=== PATIENT | female | born 1955 | race Two or more races ===

== ENCOUNTER 2018-12-04 03:19 | Inpatient (IN) | payer OTHER, MEDICAID ==
[~2018-12-04] VITALS: Ht 152.4 cm; Wt 50.4 kg
[~2018-12-04 03:19] MED LIST: APIX2.5T PO; INSULIN; METF850T; [UNRECOGNIZED DRUG - OTHER]; [UNRECOGNIZED DRUG - OTHER]
[2018-12-04 04:13] LABS: Basophils # (auto) 0 uL; Basophils % (auto) 0.4 % (0.0-2.0); Eosinophils # (auto) 0.1 uL; Hemoglobin 11.1 g/dL (12.2-16.2); Lymphocytes # (auto) 1.7 uL; Mean Corpuscular Hemoglobin 31.1 pg (28.0-32.0); Mean Corpuscular Hgb Conc. 33.6 g/dL (32.0-36.0); Mean Corpuscular Volume 92.6 fL (80.0-100.0); Monocytes # (auto) 0.8 uL; Monocytes % (auto) 7.6 % (0.0-12.0); Neutrophils # (auto) 7.4 uL; Platelet Count (auto) 284 10^3/uL (140-450); Red Blood Cells 3.57 10^6/uL (4.0-5.20); Red Cell Distribution Width 13.4 % (11.8-14.3)
[2018-12-04 04:28] LABS: Alanine Aminotransferase 23 U/L (13-56); Albumin 3.7 g/dL (3.4-5.0); Anion Gap 8 (5-15); Calcium 8.2 mg/dL (8.5-10.1); Carbon Dioxide 22 mmol/L (21-32); Chloride 112 mmol/L (98-107); Glucose 114 mg/dL (74-106); Potassium 3.8 mmol/L (3.5-5.1); Sodium 142 mmol/L (136-145)
[2018-12-04 04:32] LABS: Alkaline Phosphatase 110 U/L (45-117); Aspartate Aminotransferase 17 U/L (15-37); BUN/Creatinine Ratio 31.4; Bilirubin, Total 0.2 mg/dL (0.2-1.0); GFR African American 24 mL/min; GFR Non-African American 20 mL/min; Total Protein 7.9 g/dL (6.4-8.2)
[2018-12-04 04:36] LABS: Blood Urea Nitrogen 82 mg/dL (7-18); INR 1.02 (0.9-1.15); Partial Thromboplastin Time 32.2 sec (23.64-32.05)
[2018-12-04] MEDS ORDERED: FUROSEMIDE 20 MG/2 ML VIAL IV ONE (08:00)
[2018-12-04] MEDS ORDERED: MORPHINE SULF INJ 2 MG/ML SYRINGE 1ML IV PRN (09:45)
[2018-12-04] MEDS ORDERED: NITROGLYCERIN 0.4 MG SL TAB SL PRN (09:45)
[2018-12-04] MEDS ORDERED: PROMETHAZINE HCL 25 MG/ML 1ML IV PRN (09:45)
[2018-12-04] MEDS ORDERED: LACTULOSE 20Gm/30ML SOLN PO PRN (09:45)
[2018-12-04] MEDS ORDERED: TEMAZEPAM 15 MG CAP PO PRN (09:45)
[2018-12-04] MEDS ORDERED: ACETAMINOPHEN 500 MG TAB PO PRN (09:45)
[2018-12-04] MEDS ORDERED: traMADol HCL 50 MG TAB PO PRN (09:45)
[2018-12-04] MEDS ORDERED: DEXTROSE (50%) 50ML SYRG IV PRN (09:45)
[2018-12-04 09:57] LABS: Urine Bacteria FEW /hpf (None Seen); Urine Blood 1+ /uL (Negative); Urine Specific Gravity 1.006 (1.001-1.035); Urine WBC 3 /hpf (0 - 5)
[2018-12-04] MEDS: PANTOPRAZOLE 40 MG TAB PO SCH (10:32)
[2018-12-04] MEDS: APIXABAN 2.5 MG TAB PO SCH ×2 (10:33→22:32)
[2018-12-04] MEDS: FUROSEMIDE 40 MG/4 ML VIAL IV SCH (10:33)
[2018-12-04] MEDS: HYDROcodone-ACET 10/325MG TAB PO PRN ×2 (11:15→22:33)
[2018-12-04] MEDS: ACCU-CHEK COMFORT CURVE STRIP VI SCH ×3 (11:19→22:33)
[2018-12-04] MEDS: InsuLIN REG 1unit/0.01ml Soln (100units/ml) SC SCH ×3 (11:20→22:00)
[2018-12-04] MEDS: SODIUM CHLOR 0.9% PF (SALINE LOCK) 10ML VIAL/SYR IV SCH ×2 (14:02→22:32)
[2018-12-04 20:40] VITALS: BP 138/58
[2018-12-04 20:45] VITALS: BP 138/58
--- NOTE | 2018-12-04 20:45 | NUR ---
Telemetry admit from ER COMPA GALLARDO admitted to Telemetry unit after SBAR received. Patient oriented to Pham Bowen, primary RN, unit, room, bed, and unit policies regarding patient care and visiting hours. Patient now on continuous telemetry monitoring, tele box #5 and telemetry reading on arrival to unit is . Patient placed on bedside oxygen, weighed by bedscale and encouraged to call if they need something. All questions and concerns addressed, patient verbalized understanding. Family at bedside. Good family dynamics noted.
--- NOTE | 2018-12-04 22:35 | NUR ---
PATIENT REFUSED INSULIN BS 159. PATIENT STATED THAT HER BLOOD SUGAR NORMALLY DROPS OVER NIGHT AND THAT SHE WILL NOT BE EATING ANYTHING UNTIL BREAKFAST.
[2018-12-05] MEDS ORDERED: GLIP-116 PO (01:03)
[2018-12-05] MEDS ORDERED: AMLO5TAB13 PO (01:03)
[2018-12-05] MEDS ORDERED: FURO40TA4 PO (01:03)
[2018-12-05] MEDS ORDERED: NIFE30TA76 PO (01:03)
[2018-12-05] MEDS ORDERED: APIX5TAB OR (01:03)
[2018-12-05] MEDS ORDERED: ERGO2000 PO (01:03)
[2018-12-05] MEDS ORDERED: PROM25TA5 PO (01:03)
--- NOTE | 2018-12-05 04:39 | NUR ---
WOUND PHOTOS WOUND PHOTOS TO LEFT AND RIGHT KNEES TAKEN. WOUND CARE FORM SIGNED AND PLACED IN WOUND CARE FILE.
[2018-12-05 05:00] VITALS: BP 114/67
[2018-12-05] MEDS: SODIUM CHLOR 0.9% PF (SALINE LOCK) 10ML VIAL/SYR IV SCH ×3 (05:49→22:01)
[2018-12-05] MEDS: InsuLIN REG 1unit/0.01ml Soln (100units/ml) SC SCH ×4 (06:08→22:00)
[2018-12-05] MEDS: ACCU-CHEK COMFORT CURVE STRIP VI SCH ×4 (06:09→22:01)
[2018-12-05 07:19] LABS: Basophils # (auto) 0 uL; Basophils % (auto) 0.5 % (0.0-2.0); Eosinophils # (auto) 0.1 uL; Eosinophils % (auto) 1.7 % (0.0-7.0); Hematocrit 32.4 % (36.0-46.0); Hemoglobin 10.8 g/dL (12.2-16.2); Lymphocytes # (auto) 1.9 uL; Lymphocytes % (auto) 24.4 % (10.0-50.0); Mean Corpuscular Hgb Conc. 33.4 g/dL (32.0-36.0); Mean Corpuscular Volume 92.9 fL (80.0-100.0); Monocytes # (auto) 0.7 uL; Monocytes % (auto) 8.6 % (0.0-12.0); Neutrophils # (auto) 4.9 uL; Neutrophils % (auto) 64.8 % (37.0-80.0); Platelet Count (auto) 295 10^3/uL (140-450); Red Blood Cells 3.49 10^6/uL (4.0-5.20); Red Cell Distribution Width 13.6 % (11.8-14.3); White Blood Cell 7.6 10^3/uL (4.4-10.8)
[2018-12-05 07:33] LABS: Albumin 3.5 g/dL (3.4-5.0); Calcium 7.9 mg/dL (8.5-10.1); Potassium 3.8 mmol/L (3.5-5.1)
[2018-12-05 07:35] LABS: BUN/Creatinine Ratio 22.3
[2018-12-05 07:38] LABS: Bilirubin, Total 0.2 mg/dL (0.2-1.0); Total Protein 7.2 g/dL (6.4-8.2)
--- NOTE | 2018-12-05 08:11 | NUR ---
ENDORSED PATIENT CARE TO DAY SHIFT NURSE BIPIN GRAHAM.
--- NOTE | 2018-12-05 08:30 | NUR ---
Opening Shift Note Assumed care of patient, awake and alert. No S/S of distress/SOB or pain. Instructed on POC and to call for assist PRN, will continue to monitor for changes Q1hr and PRN.
[2018-12-05] MEDS: HYDROcodone-ACET 10/325MG TAB PO PRN ×2 (08:47→16:27)
[2018-12-05 09:00] VITALS: BP 129/65
[2018-12-05] MEDS: PANTOPRAZOLE 40 MG TAB PO SCH (09:44)
[2018-12-05] MEDS: APIXABAN 2.5 MG TAB PO SCH ×2 (09:44→22:01)
[2018-12-05] MEDS: FUROSEMIDE 40 MG/4 ML VIAL IV SCH (09:45)
--- NOTE | 2018-12-05 10:30 | NUR ---
WOUND CARE NOTE: IN TO SEE PATIENT PER WOUND CARE CONSULT REQUEST. PATIENT WAS NOTED UPON ADMIT TO HAVE WOUND TO LEFT KNEE. WOUND PHOTO TAKEN AT THAT TIME BY BEDSIDE NURSE, WOUND CONSULT ORDERED. PATIENT ADMITTED WITH DIAGNOSIS OF NEPHROLITHIASIS. CURRENT HILDA SCORE IS 20. PATIENT IS AMBULATORY, CAN SELF TURN/REPOSITION HERSELF. PATIENT NOTED TO HAVE AN INTACT SERUM BLISTER TO THE LEFT KNEE. NO OPEN OR DRAINING AREAS NOTED. SKIN IS DARK RED. PATIENT STATES THAT SHE PERIODICALLY OBTAINS BLISTERS TO VARIOUS AREAS OF THE SKIN. SHE HAS NO OTHER BLISTERS NOTED AT THIS TIME, OTHER THAN THE LEFT KNEE. LEFT OPEN TO AIR. PLACED SKIN/WOUND CARE PLAN FOR WOUND. NO FURTHER WOUND CARE MONITORING NEEDED AT THIS TIME. Addendum: 12/05/18 at 1657 by Lilliam Dunham RN Amended: Links added.
--- NOTE | 2018-12-05 11:30 | NUR ---
PT AMBULATES FREQUENTLY IN THE HALLWAY GAIT STEADY. TOLERATE ACTIVITY WELL.
[2018-12-05 13:11] VITALS: BP 123/45
--- NOTE | 2018-12-05 16:00 | NUR ---
PT REPORTS THAT SHE IS DOING FINE AND DOES NOT NEED P.T.
--- NOTE | 2018-12-05 19:10 | NUR ---
ASSUMED PATIENT CARE- NOC SHIFT PATIENT IS ALERT AND ORIENTED X4. PATIENT IS IN BED, BED IS LOCKED IN LOWEST POSITION, BED RAILS UP X2 AND HEAD OF BED IS UP >30 FOR SAFETY PRECAUTIONS. BEDSIDE TABLE WITHIN REACH, PERSONAL BELONGINGS WITHIN REACH, CALL LIGHT WITHIN REACH. DISCUSSED POC WITH PATIENT AND INSTRUCTED PATIENT TO CALL PRN; PATIENT VERBALIZED UNDERSTANDING. WILL CONTINUE TO MONITOR Q1H AND PRN. NO S/SX OF DISTRESS OR SOB. FAMILY AT BEDSIDE; GOOD FAMILY DYNAMICS NOTED. PATIENT IS CZECH SPEAKING.
--- NOTE | 2018-12-05 19:39 | NUR ---
CLOSING NOTES REPORT GIVEN TO GLADYS MEADOWS. PT RESTING IN BED. FAMILY AT BEDSIDE. DENIES PAIN OR SOB. NO DISTRESS NOTED.
--- NOTE | 2018-12-05 20:48 | NUR ---
PATIENT AND GUILLAUME GALLARDO AT BEDSIDE STATED THAT THEY WANTS FURTHER STUDIES TO BE DONE DURING THIS STAY FOR HIS FOR THE 3 MM NODULE FOUND IN RIGHT LUNG. WILL ENDORSE REQUEST TO DAY SHIFT NURSE.
--- NOTE | 2018-12-05 22:01 | NUR ---
BS 135 PATIENT REFUSED INSULIN. PATIENT STATES THAT HER BLOOD SUGAR DROPS DURING THE NIGHT AND DOES NOT TAKE INSULIN FOR A BLOOD SUGAR OF 135.
[2018-12-05 22:06] VITALS: BP 115/60
[2018-12-06] MEDS: HYDROcodone-ACET 10/325MG TAB PO PRN ×2 (00:47→09:08)
[2018-12-06 05:16] VITALS: BP 124/68
[2018-12-06] MEDS: SODIUM CHLOR 0.9% PF (SALINE LOCK) 10ML VIAL/SYR IV SCH (06:45)
[2018-12-06] MEDS: ACCU-CHEK COMFORT CURVE STRIP VI SCH ×2 (06:45→11:30)
[2018-12-06] MEDS: InsuLIN REG 1unit/0.01ml Soln (100units/ml) SC SCH ×2 (06:45→11:30)
[2018-12-06 07:27] LABS: Basophils # (auto) 0 uL; Basophils % (auto) 0.5 % (0.0-2.0); Eosinophils # (auto) 0.1 uL; Eosinophils % (auto) 1.6 % (0.0-7.0); Hematocrit 32.4 % (36.0-46.0); Hemoglobin 10.8 g/dL (12.2-16.2); Lymphocytes # (auto) 1.7 uL; Lymphocytes % (auto) 23.4 % (10.0-50.0); Mean Corpuscular Hemoglobin 30.8 pg (28.0-32.0); Mean Corpuscular Hgb Conc. 33.2 g/dL (32.0-36.0); Mean Corpuscular Volume 92.8 fL (80.0-100.0); Monocytes # (auto) 0.6 uL; Monocytes % (auto) 8.7 % (0.0-12.0); Neutrophils # (auto) 4.8 uL; Neutrophils % (auto) 65.8 % (37.0-80.0); Platelet Count (auto) 285 10^3/uL (140-450); Red Cell Distribution Width 13.4 % (11.8-14.3); White Blood Cell 7.3 10^3/uL (4.4-10.8)
[2018-12-06 07:40] LABS: Calcium 8.4 mg/dL (8.5-10.1); Magnesium 3.4 mg/dL (1.6-2.6)
--- NOTE | 2018-12-06 07:46 | NUR ---
ENDORSED PATIENT CARE TO DAY SHIFT NURSE. PATIENT IS ALERT AND ORIENTED X4. NO S/SX OF DISTRESS, SOB OR PAIN.
[2018-12-06 07:47] LABS: Cholesterol 218 mg/dL (< 200); HDL Cholesterol 61 mg/dL (40-59); LDL Cholesterol 132 mg/dL (< 100); Triglycerides 180 mg/dL (< 150)
[2018-12-06 08:00] VITALS: BP 129/65
--- NOTE | 2018-12-06 08:00 | NUR ---
ASSESSMENT NOTE PATIENT IS ALERT ORIENTED X4, SITTING ON A CHAIR AT BED SIDE, NO DISTRESS NOTED, DENIES PAIN AT THIS TIME, AMBULATE NEEDED, CALL LIGHT WITHIN REACH.
[2018-12-06 09:00] VITALS: BP 118/69
--- NOTE | 2018-12-06 09:00 | NUR ---
DR PEREA AT BED SIDE FOLLOWING UP ON PT, INFORM PT THAT WE STILL WAITING FOR THE URINE CULTURE.
[2018-12-06] MEDS: FUROSEMIDE 40 MG/4 ML VIAL IV SCH (09:07)
[2018-12-06] MEDS: APIXABAN 2.5 MG TAB PO SCH (09:08)
[2018-12-06] MEDS: PANTOPRAZOLE 40 MG TAB PO SCH (10:00)
--- NOTE | 2018-12-06 10:00 | NUR ---
FAMILY PATIENT'S FAMILY AT BED SIDE
[2018-12-06] MEDS ORDERED: ATOR20TA PO (11:06)
[2018-12-06 11:27] VITALS: BP 118/69
--- NOTE | 2018-12-06 12:19 | NUR ---
Discharge instructions given as ordered. Encourage to follow up with PMD as instructed. All questions and concerns addressed. Patient verbalized understanding. Medication reconciliation form completed and copy given to patient. IV removed with catheter intact, pressure dressing applied, Telemetry unit returned to ICU. Patient ambulated with all personal belongings, accompanied by staff and family member. No distress noted at time of departure.
== END 2018-12-06 12:15 | disposition home or self-care (01) | DRG 291 ==
LOC: EDBD 03:19 → ER 03:27 → TELE 03:28 → TELE-EAST 20:44
PROVIDERS: ADMIT Internal Medicine; ATTEND Internal Medicine
DX: I13.2 Hypertensive heart and chronic kidney disease with heart failure and with stage 5 chronic kidney disease, or end stage renal disease (principal); N18.6 End stage renal disease; I50.43 Acute on chronic combined systolic (congestive) and diastolic (congestive) heart failure; N39.0 Urinary tract infection, site not specified; N20.0 Calculus of kidney; R91.1 Solitary pulmonary nodule; E78.5 Hyperlipidemia, unspecified; F17.210 Nicotine dependence, cigarettes, uncomplicated; K44.9 Diaphragmatic hernia without obstruction or gangrene; E11.22 Type 2 diabetes mellitus with diabetic chronic kidney disease; D63.8 Anemia in other chronic diseases classified elsewhere; K59.00 Constipation, unspecified; Z80.0 Family history of malignant neoplasm of digestive organs; Z82.49 Family history of ischemic heart disease and other diseases of the circulatory system; Z83.3 Family history of diabetes mellitus; Z87.442 Personal history of urinary calculi; Z90.710 Acquired absence of both cervix and uterus; Z99.2 Dependence on renal dialysis; Z88.8 Allergy status to other drugs, medicaments and biological substances; Z79.899 Other long term (current) drug therapy; Z71.6 Tobacco abuse counseling
CPT/HCPCS: 36415; 71045; 74176; 80048; 80053; 80061; 81001; 82550; 82962; 83036; 83735; 83880; 84484; 85025; 85379; 85610; 85652; 85730; 87086; 93005; 93306; 93971; G0378; J1815

== ENCOUNTER 2019-02-15 10:52 | Inpatient (IN) | payer OTHER, MEDICAID ==
[~2019-02-15] VITALS: Ht 152.4 cm; Wt 55.0 kg
[~2019-02-15 10:52] MED LIST changes: +AMLO5TAB15 PO; +APIX5TAB OR; +ATOR20TA PO; +ERGO2000 PO; +FURO40TA4 PO; +GLIP10TA9 PO; +NIFE30TA76 PO; +PROM25TA5 PO
[2019-02-15] MEDS ORDERED: SODIUM CHLORIDE 0.9% 1,000 ML IVB ONE (11:01)
[2019-02-15 11:34] LABS: Basophils # (auto) 0.1 uL; Basophils % (auto) 0.9 % (0.0-2.0); Eosinophils # (auto) 0.1 uL; Eosinophils % (auto) 1.2 % (0.0-7.0); Hemoglobin 12.7 g/dL (12.2-16.2); Lymphocytes # (auto) 2.7 uL; Lymphocytes % (auto) 25.2 % (10.0-50.0); Mean Corpuscular Hemoglobin 31.1 pg (28.0-32.0); Mean Corpuscular Hgb Conc. 33.4 g/dL (32.0-36.0); Monocytes # (auto) 0.6 uL; Monocytes % (auto) 5.6 % (0.0-12.0); Neutrophils # (auto) 7.2 uL; Neutrophils % (auto) 67.1 % (37.0-80.0); Nucleated Red Blood Cells % 0.1 %; Platelet Count (auto) 327 10^3/uL (140-450); Red Blood Cells 4.08 10^6/uL (4.0-5.20); Red Cell Distribution Width 13.4 % (11.8-14.3); White Blood Cell 10.8 10^3/uL (4.4-10.8)
[2019-02-15 11:45] LABS: Albumin 3.9 g/dL (3.4-5.0); Anion Gap 7 (5-15); Calcium 8.6 mg/dL (8.5-10.1); Carbon Dioxide 25 mmol/L (21-32); Chloride 109 mmol/L (98-107); Glucose 154 mg/dL (74-106); Magnesium 2.4 mg/dL (1.6-2.6); Potassium 3.3 mmol/L (3.5-5.1); Sodium 141 mmol/L (136-145)
[2019-02-15 11:51] LABS: Alanine Aminotransferase 23 U/L (13-56); Alkaline Phosphatase 109 U/L (45-117); Aspartate Aminotransferase 18 U/L (15-37); BUN/Creatinine Ratio 14.7; Bilirubin, Total 0.3 mg/dL (0.2-1.0); Blood Urea Nitrogen 39 mg/dL (7-18); GFR African American 23 mL/min; GFR Non-African American 19 mL/min
[2019-02-15] MEDS ORDERED: ONDANSETRON HCL 4 MG/2 ML VIAL IV ONE ×2 (13:30→15:00)
[2019-02-15] MEDS ORDERED: LABETALOL HCL 5 MG/ML ML 20ML VIAL IV PRN (14:30)
[2019-02-15] MEDS ORDERED: LACTULOSE 20Gm/30ML SOLN PO PRN (14:30)
[2019-02-15] MEDS ORDERED: NITROGLYCERIN 0.4 MG SL TAB SL PRN (14:30)
[2019-02-15] MEDS ORDERED: SODIUM CHLORIDE 0.9% 1,000 ML IV SCH (14:30)
[2019-02-15] MEDS ORDERED: MORPHINE SULF INJ 2 MG/ML SYRINGE 1ML IV PRN (14:30)
[2019-02-15] MEDS ORDERED: DEXTROSE (50%) 50ML SYRG IV PRN (14:30)
[2019-02-15 14:55] LABS: Amylase 71 U/L (25-115); Lipase 178 U/L (73-393)
[2019-02-15 14:58] LABS: Creatine Kinase IFCC 55 U/L (26-192)
[2019-02-15] MEDS ORDERED: ONDANSETRON HCL 4 MG/2 ML VIAL ONE (14:59)
[2019-02-15] MEDS ORDERED: LEVOFLOXACIN 500MG 100 ML IV ONE (15:15)
--- NOTE | 2019-02-15 15:45 | NUR ---
Telemetry admit from ER ROSALIA GALLARDO admitted to Telemetry unit after SBAR received. Patient oriented to primary RN, unit, room, bed, and unit policies regarding patient care and visiting hours. Patient now on continuous telemetry monitoring, tele box # 64 and telemetry reading on arrival to unit is SR 91. Patient weighed by bedscale and encouraged to call if she need something. All questions and concerns addressed, patient verbalized understanding. Family members at bedside.
[2019-02-15] MEDS: SODIUM CHLORIDE 0.9% 1,000 ML IV SCH (15:54)
[2019-02-15] MEDS: PROMETHAZINE HCL 25 MG/ML 1ML IV PRN (16:06)
[2019-02-15 16:29] VITALS: BP 141/79
[2019-02-15 17:00] VITALS: BP 141/78
[2019-02-15] MEDS: InsuLIN REG 1unit/0.01ml Soln (100units/ml) SC SCH ×2 (17:39→22:00)
[2019-02-15] MEDS: ACCU-CHEK COMFORT CURVE STRIP VI SCH ×2 (17:40→22:07)
--- NOTE | 2019-02-15 19:30 | NUR ---
RECEIVED PATIENT FROM DAY SHIFT RN. PATIENT RESTING IN BED. NO S/S OF DISTRESS NOTED. DENIED PAIN FOR NOW. POC INSTRUCTED AND ENCOURAGED PATIENT TO CALL FOR TEACHER DANCING IF NEEDED. BED IN LOWEST POSITION WITH SIDE RAILS UP X 2. CALL KWAN WITHIN REACH. ALARM ON. CONTINUE TO MONITOR FOR CHANGES Q1H AND PRN.
[2019-02-15 21:00] VITALS: BP 148/69
[2019-02-15] MEDS ORDERED: ATORVASTATIN 20 MG TAB PO SCH (22:00)
[2019-02-15] MEDS: metroNIDAZOLE 500MG/100ML 100 ML IV SCH (22:07)
[2019-02-15] MEDS: APIXABAN 5 MG TAB PO SCH (22:07)
[2019-02-15] MEDS: traMADol HCL 50 MG TAB PO PRN (22:07)
--- NOTE | 2019-02-15 22:10 | NUR ---
PATIENT C/O PAIN @ 03/01. MEDICATED PATIENT ORDERED. ACCU-CHECK, BS 127. NO COVERAGE. CONTINUE TO MONITOR.
--- NOTE | 2019-02-16 01:45 | NUR ---
ASSISTED PATIENT TO BATHROOM AND BACK TO BED. PATIENT WALKED WELL WITH STEADY GAIT. NO S/S OF DISTRESS NOTED. URINE SAMPLE COLLECTED AND SENT TO LAB. CONTINUE TO MONITOR.
[2019-02-16] MEDS: SODIUM CHLORIDE 0.9% 1,000 ML IV SCH ×2 (01:47→11:21)
[2019-02-16] MEDS: TEMAZEPAM 15 MG CAP PO PRN ×2 (01:50→22:09)
[2019-02-16 02:56] LABS: Urine WBC None Seen /hpf (0 - 5)
[2019-02-16 03:10] LABS: Urine Bacteria NONE SEEN /hpf (None Seen); Urine Blood Negative /uL (Negative); Urine Specific Gravity 1.007 (1.001-1.035)
[2019-02-16 03:26] LABS: Alcohol, Urine < 3.0 mg/dL (0-5); Amphetamine Screen, Urine NEGATIVE (NEGATIVE); Barbiturate Scree,Urine NEGATIVE (NEGATIVE); Benzodiazephine Screen, Urine NEGATIVE (NEGATIVE); Cannabinoid Screen, Urine NEGATIVE (NEGATIVE); Cocaine Screen, Urine NEGATIVE (NEGATIVE); Opiate Scree,Urine NEGATIVE (NEGATIVE); Phencyclidine Screen, Urine NEGATIVE (NEGATIVE)
--- NOTE | 2019-02-16 03:46 | NUR ---
PATIENT SLEEPING. NO S/S OF DISTRESS NOTED. CONTINUE CARE.
[2019-02-16 04:30] VITALS: BP 177/76
[2019-02-16] MEDS: metroNIDAZOLE 500MG/100ML 100 ML IV SCH ×3 (05:45→22:09)
[2019-02-16] MEDS: ACETAMINOPHEN 500 MG TAB PO PRN (05:46)
--- NOTE | 2019-02-16 05:46 | NUR ---
MEDICATED PATIENT FOR PAIN. CONTINUE TO MONITOR.
[2019-02-16 06:00] VITALS: BP 158/71
--- NOTE | 2019-02-16 06:00 | NUR ---
REASSESSED BP 158/71, HR 66. CONTINUE TO MONITOR.
[2019-02-16] MEDS: ACCU-CHEK COMFORT CURVE STRIP VI SCH ×4 (06:40→22:10)
[2019-02-16] MEDS: InsuLIN REG 1unit/0.01ml Soln (100units/ml) SC SCH ×4 (06:40→22:30)
--- NOTE | 2019-02-16 06:41 | NUR ---
ACCU-CHECK, BS 122. NO COVERAGE. CONTINUE TO MONITOR.
--- NOTE | 2019-02-16 07:30 | NUR ---
Opening Shift Note Assumed care of patient, awake and alert sitting up in bed stating that she feels much better today. No S/S of distress/SOB or pain. Instructed on POC and to call for assist PRN, will continue to monitor for changes Q1hr and PRN.
[2019-02-16 09:00] VITALS: BP 151/72
[2019-02-16 09:14] LABS: BUN/Creatinine Ratio 15.3; Calcium 8.1 mg/dL (8.5-10.1); Potassium 3.2 mmol/L (3.5-5.1)
--- NOTE | 2019-02-16 09:30 | NUR ---
Family members at bedside.
[2019-02-16] MEDS: LEVOFLOXACIN 250MG 50 ML IV SCH (09:49)
[2019-02-16] MEDS: APIXABAN 5 MG TAB PO SCH ×2 (09:50→22:09)
[2019-02-16] MEDS: PANTOPRAZOLE 40 MG TAB PO SCH (09:50)
[2019-02-16] MEDS: ATORVASTATIN 20 MG TAB PO SCH (09:50)
[2019-02-16] MEDS: ASPirin 81 mg TAB PO SCH (09:50)
[2019-02-16] MEDS: amLODIPine BESYLATE 5 MG TAB PO SCH (09:55)
[2019-02-16] MEDS ORDERED: ASPirin 81 mg TAB PO SCH (10:00)
[2019-02-16] MEDS ORDERED: ENOXAPARIN SOD 30 MG/0.3 ML SYRINGE SC SCH (10:00)
[2019-02-16] MEDS: traMADol HCL 50 MG TAB PO PRN (12:39)
[2019-02-16 13:00] VITALS: BP 156/79
--- NOTE | 2019-02-16 13:00 | NUR ---
Hospitalist Rounding MD rounded on patient. Family members at bedside, all questions answered.
[2019-02-16] MEDS ORDERED: POTASSIUM CHL 20 Meq TABLET PO ONE (14:15)
--- NOTE | 2019-02-16 15:10 | NUR ---
Repairer [employer] Rounding Dr. Corey at bedside with patient and spouse.
[2019-02-16 16:56] VITALS: BP 153/77
--- NOTE | 2019-02-16 19:30 | NUR ---
RECEIVED PATIENT FROM DAY SHIFT RN. PATIENT RESTING IN BED AND TALKING ON THE PHONE. NO S/S OF DISTRESS NOTED. DENIED PAIN FOR NOW. POC INSTRUCTED AND ENCOURAGED PATIENT TO CALL FOR BUSINESS ASSISTANT IF NEEDED. BED IN LOWEST POSITION WITH SIDE RAILS UP X 2. CALL KWAN WITHIN REACH. ALARM ON. CONTINUE TO MONITOR FOR CHANGES Q1H AND PRN.
--- NOTE | 2019-02-16 21:15 | NUR ---
ASSISTED PATIENT TO BATHROOM AND BACK TO BED. NO S/S OF DISTRESS NOTED GAIT STEADY. CONTINUE TO MONITOR.
[2019-02-16 22:00] VITALS: BP 151/70
--- NOTE | 2019-02-16 22:30 | NUR ---
ACCU-CHECK, BS 164. INSULIN GIVEN ORDERED. CONTINUE TO MONITOR.
[2019-02-17] VITALS (8 sets, daily range): BP systolic 131–183; BP diastolic 59–79
--- NOTE | 2019-02-17 04:41 | NUR ---
PATIENT REFUSED BLOOD DRAW SINCE THE PHLEBOTOMY DID NOT GET THE BLOOD AT THE FIRST TIME. SOMEONE WILL COME BACK TO TRY IT LATER. CONTINUE TO MONITOR.
[2019-02-17] MEDS: InsuLIN REG 1unit/0.01ml Soln (100units/ml) SC SCH ×4 (06:40→21:54)
[2019-02-17] MEDS: ACCU-CHEK COMFORT CURVE STRIP VI SCH ×4 (06:40→21:46)
[2019-02-17] MEDS: metroNIDAZOLE 500MG/100ML 100 ML IV SCH ×3 (06:40→21:04)
--- NOTE | 2019-02-17 06:40 | NUR ---
ACCU-CHECK, BS 132. INSULIN GIVEN ORDERED. CONTINUE TO MONITOR.
--- NOTE | 2019-02-17 07:30 | NUR ---
Opening Shift Note Assumed care of patient, awake and alert x4. Patient denies pain at this time. No S/S of distress/shortness of breath noted at this time. Instructed on plan of care and to call for assistance as needed. Bed is locked in lowest position, side rails x 2 are up, call light is within reach.
[2019-02-17] MEDS: PROMETHAZINE HCL 25 MG/ML 1ML IV PRN (08:32)
[2019-02-17] MEDS: LEVOFLOXACIN 250MG 50 ML IV SCH (10:35)
[2019-02-17] MEDS: APIXABAN 5 MG TAB PO SCH ×2 (10:39→21:53)
[2019-02-17] MEDS: amLODIPine BESYLATE 5 MG TAB PO SCH (10:39)
[2019-02-17] MEDS: ATORVASTATIN 20 MG TAB PO SCH (10:39)
[2019-02-17] MEDS: PANTOPRAZOLE 40 MG TAB PO SCH (10:39)
[2019-02-17] MEDS: ASPirin 81 mg TAB PO SCH (10:39)
[2019-02-17] MEDS ORDERED: AZITHROMYCIN 250 MG TAB PO ONE ×3 (11:30→18:00)
--- NOTE | 2019-02-17 12:00 | NUR ---
AZITHROMYCIN SCHEDULED FOR 11:30 NOT IN MEDICATION PIXUS, CALLED PHARMACY PER PHARMACY WILL SEND UP MEDICATION.
--- NOTE | 2019-02-17 13:20 | NUR ---
Blood pressure was 183/79 reassessed blood pressure 157/79.
--- NOTE | 2019-02-17 13:30 | NUR ---
PATIENT REFUSED IV ACCESS AFTER X4 ATTEMPTS OF INSERTION.
[2019-02-17 13:46] LABS: Albumin 3.7 g/dL (3.4-5.0); Potassium 5.4 mmol/L (3.5-5.1)
[2019-02-17 13:51] LABS: BUN/Creatinine Ratio 17.5; Bilirubin, Total 0.4 mg/dL (0.2-1.0); Calcium 8.7 mg/dL (8.5-10.1); Total Protein 8.3 g/dL (6.4-8.2)
--- NOTE | 2019-02-17 15:33 | NUR ---
PAGE DOCTOR CATHY. AWAITING CALL BACK.
--- NOTE | 2019-02-17 15:35 | NUR ---
SPOKE WITH DOCTOR MORGAN, NEW ORDERS RECEIVED SEE EMR FOR ORDERS.
--- NOTE | 2019-02-17 16:50 | NUR ---
SPOKE WITH DIRECTOR OF STUDENT AFFAIRS SEA, REGARDING MIDLINE UNABLE TO GET MIDLINE TILL TOMORROW.
--- NOTE | 2019-02-17 19:00 | NUR ---
CARE ENDORSED TO CRUMB PACKER.
--- NOTE | 2019-02-17 20:00 | NUR ---
ORDERS RECEIVED FROM Fabiana PRECIADO REGARDING PT'S POTASSIUM LEVEL OF 5.4. DR RAPHAEL ALSO PAGED. THROUGH EMILY [employer] OFFICER EXPLAINED TO PT THE NEED FOR HER LOKELMA PO AND HER ALBUTEROL TREATMENT. PT AWAKE ALERT ORIENTED X 4 AND IS COMPLIANT WITH PO MEDS BUT IS ADAMANTLY REFUSING TO ALLOW AN IV TO BE RESTARTED. EMILY STATES PT KNOWS THAT LEGALLY WE CANNOT FORCE AN IV ON HER. EXPLAINED THE NEED FOR CALCIUM GLUCONATE TO BE ADMINISTERED THROUGH AN IV TO HELP BRING HER POTASSIUM DOWN. PT STILL REFUSING TO ALLOW AN IV TO BE STARTED. PT TOLD EMILY THAT SHE HAS BEEN TAKING HER OWN POTASSIUM BECAUSE A NURSE TOLD HER HER POTASSIUM WAS LOW. WILL CONTINUE TO MONITOR. SUPERVISOR TITLE CHIDI INFORMED OF PT'S SITUATION;AWAITING CALL BACK FROM DR RAPHAEL ;SPOKE WITH DOMINIC AT HER SERVICE.
[2019-02-17] MEDS ORDERED: CALCIUM GLUC 4.65meq/50ml D5AE 50 ML IV ONE (20:15)
[2019-02-17] MEDS ORDERED: SODIUM ZIRCONIUM CYCL 10 GM PAK PO ONE (20:15)
[2019-02-17] MEDS ORDERED: ALBUTEROL SULF 2.5 MG/0.5ML(0.5%) NEB SOLN NEB ONE (20:15)
[2019-02-17] MEDS: TEMAZEPAM 15 MG CAP PO PRN (21:53)
[2019-02-18] MEDS: metroNIDAZOLE 500MG/100ML 100 ML IV SCH ×3 (05:14→21:17)
[2019-02-18] MEDS: InsuLIN REG 1unit/0.01ml Soln (100units/ml) SC SCH ×4 (05:15→21:18)
[2019-02-18] MEDS: ACCU-CHEK COMFORT CURVE STRIP VI SCH ×4 (05:15→21:18)
[2019-02-18 05:37] VITALS: BP 104/50
[2019-02-18 07:41] LABS: Basophils # (auto) 0.1 uL; Basophils % (auto) 0.8 % (0.0-2.0); Eosinophils # (auto) 0.1 uL; Hematocrit 30.3 % (36.0-46.0); Hemoglobin 10.3 g/dL (12.2-16.2); Lymphocytes # (auto) 2.1 uL; Lymphocytes % (auto) 22.1 % (10.0-50.0); Mean Corpuscular Hemoglobin 31.6 pg (28.0-32.0); Mean Corpuscular Hgb Conc. 34.1 g/dL (32.0-36.0); Mean Corpuscular Volume 92.8 fL (80.0-100.0); Monocytes # (auto) 0.8 uL; Monocytes % (auto) 7.9 % (0.0-12.0); Neutrophils # (auto) 6.5 uL; Neutrophils % (auto) 68.2 % (37.0-80.0); Nucleated Red Blood Cells % 0.1 %; Platelet Count (auto) 261 10^3/uL (140-450); Red Blood Cells 3.27 10^6/uL (4.0-5.20); Red Cell Distribution Width 13.3 % (11.8-14.3); White Blood Cell 9.6 10^3/uL (4.4-10.8)
[2019-02-18 07:53] LABS: Potassium 3.6 mmol/L (3.5-5.1)
[2019-02-18 08:00] VITALS: BP 158/61
[2019-02-18 08:01] LABS: Albumin 3.3 g/dL (3.4-5.0); BUN/Creatinine Ratio 21.1; Bilirubin, Total 0.2 mg/dL (0.2-1.0); Calcium 8.3 mg/dL (8.5-10.1); Total Protein 6.7 g/dL (6.4-8.2)
--- NOTE | 2019-02-18 09:30 | NUR ---
Patient not in room.
--- NOTE | 2019-02-18 09:45 | NUR ---
Over head paged for patient to return to room.
[2019-02-18] MEDS ORDERED: AZITHROMYCIN 250 MG TAB PO SCH (10:00)
--- NOTE | 2019-02-18 10:08 | NUR ---
Patient escorted back with security to room. No s/s of distress or pain noted.will continue to monitor.
--- NOTE | 2019-02-18 10:28 | NUR ---
Spoke with Ann Marie on patients elevated bun/creatinine. New orders received see EMR for orders.
[2019-02-18] MEDS: ASPirin 81 mg TAB PO SCH (10:30)
[2019-02-18] MEDS: ATORVASTATIN 20 MG TAB PO SCH (10:31)
[2019-02-18] MEDS: PANTOPRAZOLE 40 MG TAB PO SCH (10:31)
[2019-02-18] MEDS: APIXABAN 5 MG TAB PO SCH ×2 (10:31→21:17)
[2019-02-18] MEDS: amLODIPine BESYLATE 5 MG TAB PO SCH (10:37)
[2019-02-18 10:41] VITALS: BP 158/61
[2019-02-18 13:09] VITALS: BP 149/72
--- NOTE | 2019-02-18 15:50 | NUR ---
PATIENT HARD STICK, PICC LINE NURSE CONSULTED FOR MIDLINE. PER PICC LINE NURSE COULD NOT PUT IN A MIDLINE. IV 20G INSERTED IN RIGHT HAND BY PICC LINE NURSE.
[2019-02-18 16:52] VITALS: BP 116/69
[2019-02-18] MEDS ORDERED: LEVOFLOXACIN 250MG 50 ML IV SCH (17:15)
[2019-02-18] MEDS: ACETAMINOPHEN 500 MG TAB PO PRN (17:32)
[2019-02-18] MEDS ORDERED: LEVOFLOXACIN 250MG 50 ML IV ONE ×2 (17:45→18:45)
--- NOTE | 2019-02-18 20:00 | NUR ---
Opening Shift Note Received report from dayshift RN. Assumed care of patient, awake and alert. No S/S of distress/SOB or pain. Instructed on POC and to call for assist PRN, will continue to monitor for changes Q1hr and PRN. Bed lowered. Call light within reach.
[2019-02-18 22:00] VITALS: BP 133/68
--- NOTE | 2019-02-18 23:45 | NUR ---
Patient transferred from room 286 B to room 285A
[2019-02-19 05:00] VITALS: BP_SYST 116; BP_SYST 166; BP_DIAS 66
[2019-02-19] MEDS: metroNIDAZOLE 500MG/100ML 100 ML IV SCH ×2 (05:34→15:10)
[2019-02-19] MEDS: ACCU-CHEK COMFORT CURVE STRIP VI SCH ×3 (06:24→17:34)
[2019-02-19] MEDS: InsuLIN REG 1unit/0.01ml Soln (100units/ml) SC SCH ×3 (06:24→17:00)
[2019-02-19 07:08] LABS: Basophils # (auto) 0 uL; Basophils % (auto) 0.6 % (0.0-2.0); Eosinophils # (auto) 0.2 uL; Eosinophils % (auto) 1.9 % (0.0-7.0); Hematocrit 33.8 % (36.0-46.0); Hemoglobin 11.6 g/dL (12.2-16.2); Lymphocytes # (auto) 1.9 uL; Lymphocytes % (auto) 24.2 % (10.0-50.0); Mean Corpuscular Hemoglobin 31.5 pg (28.0-32.0); Mean Corpuscular Hgb Conc. 34.3 g/dL (32.0-36.0); Mean Corpuscular Volume 91.9 fL (80.0-100.0); Monocytes # (auto) 0.6 uL; Monocytes % (auto) 7.3 % (0.0-12.0); Neutrophils # (auto) 5.3 uL; Platelet Count (auto) 272 10^3/uL (140-450); Red Blood Cells 3.68 10^6/uL (4.0-5.20); Red Cell Distribution Width 13.2 % (11.8-14.3)
[2019-02-19 07:10] LABS: Calcium 8.5 mg/dL (8.5-10.1); Potassium 3.5 mmol/L (3.5-5.1)
[2019-02-19 07:12] LABS: BUN/Creatinine Ratio 17.9
--- NOTE | 2019-02-19 07:30 | NUR ---
Opening Shift Note Assuming care of patient at this time. Patient is awake and alert. Patient denies pain. Patient shows no signs or symptoms of distress or shortness of breath. Bed is locked and lowered with side rails up x2. Instructed patient on the plan of care for today and to call for assistance as needed. Call light within reach. Will continue to round hourly and as needed.
[2019-02-19 09:18] VITALS: BP 121/74
[2019-02-19] MEDS: ATORVASTATIN 20 MG TAB PO SCH (09:50)
[2019-02-19] MEDS: amLODIPine BESYLATE 5 MG TAB PO SCH (09:50)
[2019-02-19] MEDS: PANTOPRAZOLE 40 MG TAB PO SCH (09:50)
[2019-02-19] MEDS: APIXABAN 5 MG TAB PO SCH (09:51)
[2019-02-19] MEDS ORDERED: LEVOFLOXACIN 250MG 50 ML IV SCH (10:00)
[2019-02-19] MEDS: ACETAMINOPHEN 500 MG TAB PO PRN (10:04)
--- NOTE | 2019-02-19 13:00 | NUR ---
Re: [facility]' Records Spoke with [facility]. Patient did not have an EGD at that facility as previously mentioned. Notified Dr. Figueredo.
--- NOTE | 2019-02-19 13:06 | NUR ---
EGD Tomorrow Dr. Chapman wants to do an EGD on patient tomorrow per Dr. Figueredo. Will put in orders.
--- NOTE | 2019-02-19 13:11 | NUR ---
Cancel EGD Patient has been on eliquis, no EGD tomorrow.
[2019-02-19 13:19] VITALS: BP 120/67
[2019-02-19] MEDS ORDERED: LEVO250T19 PO (17:03)
[2019-02-19 17:12] VITALS: BP 106/63
--- NOTE | 2019-02-19 19:43 | NUR ---
Discharge Discharge instructions given as ordered. Encourage to follow up with PMD as instructed. All questions and concerns addressed. Patient verbalized understanding. Medication reconciliation form completed and copy given to patient. IV removed with catheter intact, pressure dressing applied. Telemetry unit returned to ICU. Patient taken to vehicle with all personal belongings, accompanied family member. No distress noted at time of departure.
== END 2019-02-19 19:40 | disposition home or self-care (01) | DRG 682 ==
LOC: EDBD 10:52 → ER 10:52 → TELE 10:53 → TELE-WESTW 15:40
PROVIDERS: ADMIT Internal Medicine; ATTEND Internal Medicine Nephrology
DX: N17.9 Acute kidney failure, unspecified (principal); J69.0 Pneumonitis due to inhalation of food and vomit; I13.2 Hypertensive heart and chronic kidney disease with heart failure and with stage 5 chronic kidney disease, or end stage renal disease; G93.40 Encephalopathy, unspecified; N18.6 End stage renal disease; I95.9 Hypotension, unspecified; R55 Syncope and collapse; G43.A1 Cyclical vomiting, in migraine, intractable; E11.22 Type 2 diabetes mellitus with diabetic chronic kidney disease; E11.21 Type 2 diabetes mellitus with diabetic nephropathy; I50.9 Heart failure, unspecified; K21.9 Gastro-esophageal reflux disease without esophagitis; R91.1 Solitary pulmonary nodule; E87.6 Hypokalemia; F17.210 Nicotine dependence, cigarettes, uncomplicated; Z88.8 Allergy status to other drugs, medicaments and biological substances; E78.5 Hyperlipidemia, unspecified; E87.5 Hyperkalemia; I48.91 Unspecified atrial fibrillation; K22.8 Other specified diseases of esophagus; K44.9 Diaphragmatic hernia without obstruction or gangrene; N20.0 Calculus of kidney; Z80.0 Family history of malignant neoplasm of digestive organs; Z82.49 Family history of ischemic heart disease and other diseases of the circulatory system; Z86.718 Personal history of other venous thrombosis and embolism; Z87.442 Personal history of urinary calculi; Z90.710 Acquired absence of both cervix and uterus; Z99.2 Dependence on renal dialysis; Z79.4 Long term (current) use of insulin; T40.2X5A Adverse effect of other opioids, initial encounter; Y92.89 Other specified places as the place of occurrence of the external cause
CPT/HCPCS: 36415; 70450; 70551; 71045; 71250; 73630; 74176; 80048; 80053; 80307; 81001; 82150; 82550; 82962; 83036; 83605; 83690; 83735; 83880; 84484; 85025; 85652; 87040; 94644; 96361; 96374; 96375; G0378; J0610; J1815; J1956; J2405; J3490

== ENCOUNTER 2019-02-26 11:02 | Inpatient (IN) | payer OTHER, MEDICAID ==
[~2019-02-26] VITALS: Ht 147.3 cm; Wt 51.3 kg
[~2019-02-26 11:02] MED LIST changes: -APIX2.5T PO; -ERGO2000 PO; -FURO40TA4 PO; -GLIP10TA9 PO; +LEVO250T19 PO; -METF850T; -PROM25TA5 PO; -[UNRECOGNIZED DRUG - OTHER]; -[UNRECOGNIZED DRUG - OTHER]
[2019-02-26] MEDS ORDERED: SODIUM CHLORIDE 0.9% 500 ML IVB ONE (11:50)
[2019-02-26] MEDS ORDERED: diphenhdrAMINE HCL 50 MG/1 ML VL IV ONE (12:30)
[2019-02-26] MEDS ORDERED: LORazepam 2MG/ML-1ML VIAL IV ONE ×2 (12:30→14:30)
[2019-02-26 13:08] LABS: Basophils # (auto) 0.1 uL; Basophils % (auto) 0.7 % (0.0-2.0); Eosinophils # (auto) 0.1 uL; Hematocrit 37.3 % (36.0-46.0); Hemoglobin 12.1 g/dL (12.2-16.2); Lymphocytes # (auto) 2.4 uL; Lymphocytes % (auto) 15.9 % (10.0-50.0); Mean Corpuscular Hemoglobin 30.3 pg (28.0-32.0); Mean Corpuscular Hgb Conc. 32.4 g/dL (32.0-36.0); Mean Corpuscular Volume 93.7 fL (80.0-100.0); Monocytes # (auto) 0.8 uL; Monocytes % (auto) 5.5 % (0.0-12.0); Neutrophils # (auto) 11.6 uL; Neutrophils % (auto) 76.9 % (37.0-80.0); Platelet Count (auto) 411 10^3/uL (140-450); Red Blood Cells 3.98 10^6/uL (4.0-5.20); Red Cell Distribution Width 13.4 % (11.8-14.3)
[2019-02-26 13:15] LABS: INR 1.06 (0.9-1.15); Partial Thromboplastin Time 36.4 sec (23.64-32.05)
[2019-02-26 13:25] LABS: Chloride 104 mmol/L (98-107); Potassium 3.7 mmol/L (3.5-5.1); Sodium 138 mmol/L (136-145)
[2019-02-26 13:34] LABS: Alanine Aminotransferase 31 U/L (13-56); Albumin 4.3 g/dL (3.4-5.0); Alkaline Phosphatase 131 U/L (45-117); Anion Gap 10 (5-15); Aspartate Aminotransferase 24 U/L (15-37); Bilirubin, Total 0.3 mg/dL (0.2-1.0); Blood Alcohol < 3.0 mg/dL (0-5); Blood Urea Nitrogen 62 mg/dL (7-18); Carbon Dioxide 24 mmol/L (21-32); GFR African American 23 mL/min; GFR Non-African American 19 mL/min; Glucose 168 mg/dL (74-106); Magnesium 2.9 mg/dL (1.6-2.6); Total Protein 8.6 g/dL (6.4-8.2)
[2019-02-26] MEDS ORDERED: HALOPERIDOL LACTATE 5 MG/ML INJ VIAL IM ONE (14:30)
[2019-02-26] MEDS ORDERED: SUCCINYLCHOLINE CHLORIDE 20 MG/ML 10ML VIAL IV ONE ×2 (15:13→16:45)
[2019-02-26] MEDS ORDERED: ETOMIDATE (2MG/ML) 20ML VIAL IV ONE ×2 (15:13→16:45)
[2019-02-26] MEDS ORDERED: MIDAZOLAM DRIP 50 mg/50mL 50 ML IV ONE (15:25)
[2019-02-26] MEDS: fentaNYL Drip 2500mCg/250mlNS 250 ML IV SCH ×2 (16:32→19:59)
[2019-02-26 16:38] LABS: Alcohol, Urine < 3.0 mg/dL (0-5); Amphetamine Screen, Urine NEGATIVE (NEGATIVE); Barbiturate Scree,Urine NEGATIVE (NEGATIVE); Benzodiazephine Screen, Urine NEGATIVE (NEGATIVE); Cannabinoid Screen, Urine NEGATIVE (NEGATIVE); Cocaine Screen, Urine NEGATIVE (NEGATIVE); Opiate Scree,Urine POSITIVE (NEGATIVE); Phencyclidine Screen, Urine NEGATIVE (NEGATIVE)
[2019-02-26] MEDS ORDERED: MORPHINE SULF INJ 2 MG/ML SYRINGE 1ML IV PRN (16:45)
[2019-02-26] MEDS ORDERED: IPRATROPIUM BROM 0.5 MG/2.5ML INH SOL NEB SCH (16:45)
[2019-02-26] MEDS ORDERED: VANCOMYCIN PER PHARMACY 0 MG IV SCH (16:45)
[2019-02-26] MEDS ORDERED: NITROGLYCERIN 0.4 MG SL TAB SL PRN (16:45)
[2019-02-26] MEDS ORDERED: ONDANSETRON HCL 4 MG/2 ML VIAL IV PRN (16:45)
[2019-02-26] MEDS ORDERED: ALBUTEROL SULF 2.5 MG/0.5ML(0.5%) NEB SOLN NEB SCH (16:45)
[2019-02-26] MEDS: MIDAZOLAM DRIP 50 mg/50mL 50 ML IV SCH (16:51)
[2019-02-26] MEDS: SODIUM CHLORIDE 0.9% 1,000 ML IV SCH (17:31)
[2019-02-26] MEDS ORDERED: VANCOMYCIN 1GM/250ML 250 ML IV ONE (18:00)
[2019-02-26 18:03] VITALS: BP 126/63
[2019-02-26] MEDS: IPRATROPIUM BROM 0.5 MG/2.5ML INH SOL NEB SCH (18:14)
[2019-02-26] MEDS: ALBUTEROL SULF 2.5 MG/0.5ML(0.5%) NEB SOLN NEB SCH (18:14)
[2019-02-26] MEDS: PIPERACILLIN-TAZOB 2.25GM 50 ML IV SCH (18:50)
[2019-02-26 20:04] VITALS: BP 105/58
[2019-02-26 21:55] VITALS: BP 112/65
[2019-02-27] VITALS (67 sets, daily range): BP systolic 92–181; BP diastolic 41–78
[2019-02-27 06:15] LABS: Basophils # (auto) 0 uL; Basophils % (auto) 0.3 % (0.0-2.0); Eosinophils # (auto) 0.1 uL; Eosinophils % (auto) 0.4 % (0.0-7.0); Hematocrit 31.5 % (36.0-46.0); Hemoglobin 10.9 g/dL (12.2-16.2); Lymphocytes # (auto) 1.1 uL; Lymphocytes % (auto) 8.2 % (10.0-50.0); Mean Corpuscular Hemoglobin 31.8 pg (28.0-32.0); Mean Corpuscular Hgb Conc. 34.7 g/dL (32.0-36.0); Mean Corpuscular Volume 91.5 fL (80.0-100.0); Monocytes % (auto) 6.9 % (0.0-12.0); Neutrophils # (auto) 11.7 uL; Neutrophils % (auto) 84.2 % (37.0-80.0); Platelet Count (auto) 350 10^3/uL (140-450); Red Blood Cells 3.44 10^6/uL (4.0-5.20); Red Cell Distribution Width 13.3 % (11.8-14.3); White Blood Cell 13.9 10^3/uL (4.4-10.8)
[2019-02-27 06:24] LABS: BUN/Creatinine Ratio 20.7; Calcium 7.9 mg/dL (8.5-10.1)
[2019-02-27 06:30] LABS: Potassium 2.9 mmol/L (3.5-5.1)
[2019-02-27] MEDS: IPRATROPIUM BROM 0.5 MG/2.5ML INH SOL NEB SCH ×4 (06:54→19:02)
[2019-02-27] MEDS: ALBUTEROL SULF 2.5 MG/0.5ML(0.5%) NEB SOLN NEB SCH ×4 (06:54→19:02)
[2019-02-27] MEDS: PIPERACILLIN-TAZOB 2.25GM 50 ML IV SCH ×2 (07:00→17:14)
--- NOTE | 2019-02-27 07:30 | NUR ---
REPORT REPORT RECEIVED FROM RANDELL BECKFORD RN. BEDSIDE CHECK DONE.
[2019-02-27] MEDS: SODIUM CHLORIDE 0.9% 1,000 ML IV SCH ×2 (08:27→22:04)
--- NOTE | 2019-02-27 08:27 | NUR ---
ASSESSMENT PT LAYING IN BED, SEDATED WHILE ON THE VENTILATOR. PT WITHDRAWS TO PAINFUL STIMULI. VENTILATOR SETTINGS: 8 FR ETT/20 AT THE LIP, TV 400, AC 14, 30% FIO2 AND PEEP OF 5. LUNGS CLEAR THROUGHOUT WITH INSPIRATORY WHEEZE NOTED POSTERIOR BASES. O2 SAT OF 97%. TELE SR 77. PALPABLE PULSES TO ALL EXTREMITIES WITH NO EDEMA NOTED. SCDS APPLIED TO BLE. ABD SOFT WITH VERY FEW BOWEL SOUNDS NOTED. RIGHT NARES NGT TO LIS WITH Addendum: 02/27/19 at 2014 by Cherri Koo RN SCANT LIGHT YELLOW FLUID DRAINING. TURNED FOR COMFORT. OPTIFOAM TO SACRUM WITH BRUISING NOTED TO SACRUM AND ALSO A SMALL OPEN AREA WITH LIGHT SCAB NOTED ON SACRUM. BRUISING NOTED TO BOTH SHINS AND ALSO TI RIGHT INNER UPPER ARM.
--- NOTE | 2019-02-27 10:00 | NUR ---
TITRATING DOWN ON SEDATION .
[2019-02-27] MEDS: POTASSIUM CHL 20MEQ/100ML 100 ML IV SCH ×2 (10:47→13:01)
[2019-02-27] MEDS: ENOXAPARIN SOD 30 MG/0.3 ML SYRINGE SC SCH (10:49)
--- NOTE | 2019-02-27 11:30 | NUR ---
OFF ALL SEDATION FOR CPAP TRIAL WHEN PT AWAKE AND ABLE TO FOLLOW SIMPLE COMMANDS.
[2019-02-27] MEDS ORDERED: POTASSIUM CHL 20MEQ/100ML 100 ML IV ONE (12:15)
--- NOTE | 2019-02-27 14:13 | NUR ---
Assessment Pt is a 63 yr old female on a vent. Pt's son Lisa was bedside and answered some questions. Questions asked through a membership correspondent. Pt currently lives with her who gets paid for caregiving for the pt. Pt able to ambulate a little. Pt's son doesn't think that the pt uses any DME in the home. Lisa thinks that the pt receives HH but didn't know the details. Pt's son didn't know the name of pt's primary care provider or whether she has an advanced directive. D/C needs will be further assessed closer to d/c. Addendum: 02/27/19 at 1419 by ALEXX LYNNE Amended: Links added.
--- NOTE | 2019-02-27 14:30 | NUR ---
TURNED FOR COMFORT. STILL RIDING THE VENT.
--- NOTE | 2019-02-27 16:29 | NUR ---
PAGEKathy MIGUEL REGARDING PT'S ELEVATED BP OF 176/76 ON RFA AND 166/60 ON R UPPER ARM. PT TAKES HOME MEDS OF NIFEDIPINE ER AND AMLODIPINE AND NOT ON THEM HERE. Addendum: 02/27/19 at 1858 by Cherri Koo RN KORIN GALDAMEZ MD.
[2019-02-27] MEDS: MIDAZOLAM DRIP 50 mg/50mL 50 ML IV SCH (16:44)
--- NOTE | 2019-02-27 17:20 | NUR ---
KORIN AND SPOKE WITH TRENT PRECIADO NP. DISCUSSED PT'S ELEVATED BP AND HER HOME MEDS. HE ORDERED HER HOME MED OF NORVASC AND ALSO ORDERED METOPROLOL BID.
[2019-02-27] MEDS ORDERED: amLODIPine BESYLATE 5 MG TAB PO ONE (17:30)
--- NOTE | 2019-02-27 17:39 | NUR ---
ADMINISTERED 10 MG NORVASC VIA PT'S NGT. SUCTION TURNED OFF.
--- NOTE | 2019-02-27 18:50 | NUR ---
PT IN BED , DOES NOT OPEN EYES OR FOLLOW ANY COMMANDS, BUT LEGS ARE VERY RESTLESS AND SHE IS KICKING HER LEGS. STARTED ON PRECEDEX AT 0.2 MCG/KG/HR. CONTINUE TO MONITOR.
[2019-02-27] MEDS: DexMEDEtomidine 400 MCG in D5W 5% 96 ML IV SCH (18:52)
--- NOTE | 2019-02-27 19:30 | NUR ---
REPORT REPORT GIVEN TO RANDELL BECKFORD RN.
[2019-02-27] MEDS: MORPHINE SULF INJ 2 MG/ML SYRINGE 1ML IV PRN (20:02)
[2019-02-27] MEDS: METOPROLOL TARTRATE 25 MG TAB PO SCH (22:05)
[2019-02-28] VITALS (70 sets, daily range): BP systolic 96–158; BP diastolic 38–113
[2019-02-28] MEDS: IPRATROPIUM BROM 0.5 MG/2.5ML INH SOL NEB SCH ×4 (00:38→18:46)
[2019-02-28] MEDS: ALBUTEROL SULF 2.5 MG/0.5ML(0.5%) NEB SOLN NEB SCH ×4 (00:39→18:46)
--- NOTE | 2019-02-28 03:52 | NUR ---
PERFORMED CHG WIPE BATH AND PARTIAL LINEN CHANGE; REY-CARE PROVIDED; PT. HAD SMEAR BM-BROWN.
[2019-02-28 04:39] LABS: Basophils # (auto) 0 uL; Basophils % (auto) 0.2 % (0.0-2.0); Eosinophils # (auto) 0 uL; Eosinophils % (auto) 0.1 % (0.0-7.0); Hematocrit 31.5 % (36.0-46.0); Hemoglobin 10.2 g/dL (12.2-16.2); Lymphocytes # (auto) 1.3 uL; Lymphocytes % (auto) 7.1 % (10.0-50.0); Mean Corpuscular Hemoglobin 30.4 pg (28.0-32.0); Mean Corpuscular Hgb Conc. 32.5 g/dL (32.0-36.0); Mean Corpuscular Volume 93.8 fL (80.0-100.0); Monocytes # (auto) 1.2 uL; Monocytes % (auto) 6.3 % (0.0-12.0); Neutrophils # (auto) 15.9 uL; Neutrophils % (auto) 86.3 % (37.0-80.0); Nucleated Red Blood Cells % 0.1 %; Platelet Count (auto) 352 10^3/uL (140-450); Red Blood Cells 3.35 10^6/uL (4.0-5.20); Red Cell Distribution Width 13.3 % (11.8-14.3); White Blood Cell 18.4 10^3/uL (4.4-10.8)
[2019-02-28 05:00] LABS: BUN/Creatinine Ratio 15.9; Bilirubin, Total 0.5 mg/dL (0.2-1.0); Calcium 8.4 mg/dL (8.5-10.1); Magnesium 2.3 mg/dL (1.6-2.6); Total Protein 6.9 g/dL (6.4-8.2)
[2019-02-28] MEDS: PIPERACILLIN-TAZOB 2.25GM 50 ML IV SCH ×2 (05:12→17:45)
--- NOTE | 2019-02-28 07:15 | NUR ---
AM ASSESSMENT COMPLETED. PT THRASHING AROUND IN BED, NOT FOLLOWING COMMANDS. NIGHT RN RANDELL HAD JUST INCREASED PRECEDEX TO 0.4 MG/HR, VSS, AFEBRILE, ALL MONITOR ALARMS VERIFIED.
[2019-02-28] MEDS: SODIUM CHLORIDE 0.9% 1,000 ML IV SCH ×2 (08:45→11:56)
--- NOTE | 2019-02-28 09:00 | NUR ---
BM ELIMINATION PT HAD A MEDIUM HARD BM ABOUT A US DOLLAR QUARTER SIZE 2 OF THEM. FELL BATH GIVEN. LINEN CHANGED, APPLIED LOTION TO BODY. REPOSITIONED FOR COMFORT. PT THEN STAY CALMED AND COMFORTABLE IN BED. PT'S NIECE AT BED SIDE. PT REMAINS ON PRECEDEX AND STILL NOT AWAKE ENOUGH OR FOLLOWING COMMANDS FOR CPAP TRIAL.
[2019-02-28] MEDS: ENOXAPARIN SOD 30 MG/0.3 ML SYRINGE SC SCH (10:18)
[2019-02-28] MEDS: amLODIPine BESYLATE 5 MG TAB PO SCH (10:19)
[2019-02-28] MEDS: METOPROLOL TARTRATE 25 MG TAB PO SCH ×2 (10:20→22:00)
--- NOTE | 2019-02-28 14:30 | NUR ---
DR. CRANE ROUNDING ON PT. UPDATED ON PT'S CONDITION. STILL THRASHING AROUND IN BED, REMAINS ON PRECEDEX, STILL NOT FOLLOWING COMMANDS. PT'S & PT'S NIECE AT BED SIDE. PT HAS HAD 3 BM'S 2 SMALL ONES AN ONE BIG ONE. THE LATEST BM WAS LARGER AND SOFTER. PT HAD 3 PARTIAL BATHS WITH ONE COMPLETE BED LINEN CHANGE AND 2 PARTIAL BED LINEN CHANGES.
--- NOTE | 2019-02-28 14:36 | NUR ---
Nutrition Assessment Notes please se attached link for complete assessment Est. Needs BW 45 [id number] kcal (30-33kcal/kgBW), 54-63 gms pro (1.2-1.4 gms/kgBW d/t ESRD on HD). Will continue to monitor pertinent labs and reassess nutrient need prn Addendum: 02/28/19 at [address] Amended: Links added.
[2019-02-28] MEDS ORDERED: HALOPERIDOL LACTATE 5 MG/ML INJ VIAL IM ONE ×2 (14:45→15:00)
[2019-02-28] MEDS: DexMEDEtomidine 400 MCG in D5W 5% 96 ML IV SCH (14:53)
[2019-02-28] MEDS ORDERED: VANCOMYCIN 1GM/250ML 250 ML IV ONE (15:00)
[2019-02-28] MEDS ORDERED: HALOPERIDOL LACTATE 5 MG/ML INJ VIAL ONE (15:06)
[2019-02-28] MEDS: fentaNYL Drip 2500mCg/250mlNS 250 ML IV SCH (15:36)
[2019-02-28] MEDS: MIDAZOLAM DRIP 50 mg/50mL 50 ML IV SCH (16:44)
--- NOTE | 2019-02-28 19:30 | NUR ---
REPORT RECEIVED AND ASSUMED CARE; SEE INTERVENTIONS FOR ASSESSMENT; SEE IV SPREADSHEET FOR GTTS; PT. IN BED, ON VENTILATOR/INTUBATED, ON FENTANYL GTT AT 75MCG/HR; PT. IS VERY RESTLESS AND AGITATED; PT. HAS LEGS OVER SIDE RAIL AND THRASHING HEAD FROM SIDE TO SIDE; PT. HAS MITTENS ON AND ATTEMPTING TO PULL AT ETT; WILL TITRATE SEDATION TO REACH T[employer] RASS PER PROTOCOL; REPOSITIONED PT. FOR COMFORT AND SAFETY; WILL CONT. TO MONITOR.
[2019-02-28] MEDS: ACETAMINOPHEN 500 MG TAB PO PRN (20:22)
[2019-03-01] VITALS (67 sets, daily range): BP systolic 112–161; BP diastolic 47–70
[2019-03-01] MEDS: ALBUTEROL SULF 2.5 MG/0.5ML(0.5%) NEB SOLN NEB SCH ×4 (00:41→19:05)
[2019-03-01] MEDS: IPRATROPIUM BROM 0.5 MG/2.5ML INH SOL NEB SCH ×4 (00:41→19:05)
[2019-03-01] MEDS: MIDAZOLAM DRIP 50 mg/50mL 50 ML IV SCH (03:30)
[2019-03-01 04:11] LABS: Basophils # (auto) 0 uL; Basophils % (auto) 0.3 % (0.0-2.0); Eosinophils # (auto) 0.1 uL; Eosinophils % (auto) 0.4 % (0.0-7.0); Hematocrit 28.4 % (36.0-46.0); Hemoglobin 9.6 g/dL (12.2-16.2); Lymphocytes % (auto) 16.2 % (10.0-50.0); Mean Corpuscular Hemoglobin 31.7 pg (28.0-32.0); Mean Corpuscular Hgb Conc. 33.6 g/dL (32.0-36.0); Mean Corpuscular Volume 94.3 fL (80.0-100.0); Monocytes # (auto) 1.1 uL; Monocytes % (auto) 6.1 % (0.0-12.0); Neutrophils # (auto) 14.5 uL; Nucleated Red Blood Cells % 0.1 %; Platelet Count (auto) 312 10^3/uL (140-450); Red Blood Cells 3.02 10^6/uL (4.0-5.20); Red Cell Distribution Width 13.1 % (11.8-14.3); White Blood Cell 18.8 10^3/uL (4.4-10.8)
[2019-03-01 04:22] LABS: INR 1.02 (0.9-1.15); Partial Thromboplastin Time 36.4 sec (23.64-32.05)
[2019-03-01 04:30] LABS: Albumin 2.9 g/dL (3.4-5.0); BUN/Creatinine Ratio 12.9; Calcium 8.4 mg/dL (8.5-10.1); Potassium 3.3 mmol/L (3.5-5.1)
[2019-03-01 04:33] LABS: Bilirubin, Total 0.4 mg/dL (0.2-1.0); Total Protein 6.9 g/dL (6.4-8.2)
[2019-03-01] MEDS: PIPERACILLIN-TAZOB 2.25GM 50 ML IV SCH ×2 (05:00→17:35)
--- NOTE | 2019-03-01 07:45 | NUR ---
OPENING SHIFT NOTE Report received from Nory GRAHAM, care assumed. Physical assessment performed. Afebrile. Patient is intubated, tolerating ventilator at this time. Lungs clear anteriorly, oxygen saturation 99%. Pulses palpable bilaterally. Vital signs stable. See skin and wound assessment. Patient responds to stimuli, opens eyes, but does not follow commands. No distress noted at this time. Bed locked in lowest position, alarms in place. Will continue to monitor. Family at bedside.
--- NOTE | 2019-03-01 09:00 | NUR ---
MICROBIOLOGY Urine sample collected and sent to lab. Influenza A & B sent to lab.
--- NOTE | 2019-03-01 09:10 | NUR ---
RADIOLOGY CXR at bedside
--- NOTE | 2019-03-01 09:15 | NUR ---
SEDATION Titrated off versed for sedation vacation. Will begin to titrate down Fentanyl as patient tolerates without becoming combative. Vitals stable at this time.
[2019-03-01] MEDS: METOPROLOL TARTRATE 25 MG TAB PO SCH ×2 (10:19→23:15)
[2019-03-01] MEDS: ENOXAPARIN SOD 30 MG/0.3 ML SYRINGE SC SCH (10:19)
[2019-03-01] MEDS: amLODIPine BESYLATE 5 MG TAB PO SCH (10:19)
[2019-03-01] MEDS: POTASSIUM CHL 20MEQ/100ML 100 ML IV SCH ×3 (10:31→13:55)
[2019-03-01] MEDS: DexMEDEtomidine 400 MCG in D5W 5% 96 ML IV SCH (10:56)
--- NOTE | 2019-03-01 10:56 | NUR ---
PRECEDEX Titrated off other sedation for Cpap trial. Precedex stated at 0.2 mcg/kg/hr per protocol.
[2019-03-01] MEDS: SODIUM CHLORIDE 0.9% 1,000 ML IV SCH (11:25)
--- NOTE | 2019-03-01 12:27 | NUR ---
PLACED PT ON CPAP TRIAL AT APPROXIMATELY 1218 AND PUT BACK ON AC AT 1227. PT RR IN 60'S ON CPAP. GLADYS GONSALEZ AT BEDSIDE AND MADE AWARE. WILL CONTINUE TO MONITOR PT. Addendum: 03/01/19 at 1423 by MARGARET CRABTREE, RT RT DISREGARD THIS NOTE. WRONG PT
--- NOTE | 2019-03-01 13:05 | NUR ---
SEDATION Paused Precedex gtt at this time due to patient being too sedated.
--- NOTE | 2019-03-01 14:20 | NUR ---
Called/paged called re: blood sugar monitoring. returned call, orders received. Continue care.
[2019-03-01] MEDS ORDERED: DEXTROSE (50%) 50ML SYRG IV PRN (14:30)
--- NOTE | 2019-03-01 14:59 | NUR ---
EXTUBATED PT PER DR. CRANE ORDERS.. PT PLACED ON 35% CA AT 10LPM. PT NJ. WELL. NO STRIDOR NOTED SPO2 97%, HR 107, BP 151/62. NO DISTRESS NOTED. WILL CONTINUE TO MONITOR PT.
--- NOTE | 2019-03-01 15:00 | NUR ---
CARES/LINEN Partial linen change complete. Skin assessment performed, skin intact. Patient able to assist with turning and repositioning. Patient unable to open eyes fully but is following commands and moving bilateral extremities with equal strength. Vital stable at this time. Will continue to monitor.
--- NOTE | 2019-03-01 15:48 | NUR ---
CPAP TRIAL BEGUN
[2019-03-01] MEDS: fentaNYL Drip 2500mCg/250mlNS 250 ML IV SCH (16:32)
--- NOTE | 2019-03-01 17:00 | NUR ---
Patient extubated by RT Extubation order received by , RT at bedside. Patient extubated with no problems, patient tolerated well. Patient placed on 35% cool mist mask. Sats prior to extubation 99%, following extubation 99%. Continue to monitor.
[2019-03-01] MEDS: ACCU-CHEK COMFORT CURVE STRIP VI SCH (17:36)
[2019-03-01] MEDS: InsuLIN REG 1unit/0.01ml Soln (100units/ml) SC SCH (17:36)
--- NOTE | 2019-03-01 19:05 | NUR ---
RT NOTE PT WAS SEEN BY RT FOR HHN TX. PT TOLERATES WELL VIA MASK. PT WAS ON 8L/30% COOL AEROSOL. PT WAS CHANGED TO 2L NASAL CANNULA POST TX AND APPEARS TO TOLERATE WELL. GLADYS DAVALOS NOTIFIED OF O2 CHANGES. CONT ORDERED Addendum: 03/01/19 at 1954 by Kathryn Kirkpatrick RT Amended: Links added.
--- NOTE | 2019-03-01 19:34 | NUR ---
REPORT Report given to Nory GRAHAM, care endorsed.
[2019-03-01] MEDS: MORPHINE SULF INJ 2 MG/ML SYRINGE 1ML IV PRN (20:51)
[2019-03-01] MEDS ORDERED: HYDR-4833 PO (21:54)
[2019-03-02] VITALS (32 sets, daily range): BP systolic 126–155; BP diastolic 50–67
[2019-03-02] MEDS: ALBUTEROL SULF 2.5 MG/0.5ML(0.5%) NEB SOLN NEB SCH ×4 (00:12→19:04)
[2019-03-02] MEDS: IPRATROPIUM BROM 0.5 MG/2.5ML INH SOL NEB SCH ×4 (00:12→19:04)
--- NOTE | 2019-03-02 00:12 | NUR ---
RT NOTE PT WAS SEEN BY RT FOR HHN TX. PT TOLERATES WELL VIA MASK. NO ADVERSE REACTION NOTED. CONT ORDERED Addendum: 03/02/19 at 0033 by Kathryn Kirkpatrick RT Amended: Links added.
[2019-03-02] MEDS: HYDROcodone-ACET 10/325MG TAB PO PRN ×3 (00:30→21:36)
[2019-03-02] MEDS: ACCU-CHEK COMFORT CURVE STRIP VI SCH ×5 (00:40→23:25)
[2019-03-02] MEDS: InsuLIN REG 1unit/0.01ml Soln (100units/ml) SC SCH ×5 (00:53→23:25)
[2019-03-02] MEDS: PIPERACILLIN-TAZOB 2.25GM 50 ML IV SCH ×2 (05:50→17:45)
--- NOTE | 2019-03-02 07:45 | NUR ---
OPENING Received report from Nory GRAHAM. Care initiated and initial assessment completed. Patient is stable at this time, vital signs stable, afebrile. Patient is in bed in lowest locked position with call light within reach.
--- NOTE | 2019-03-02 08:15 | NUR ---
TOLERATING ICE/WATER Patient tolerated ice chips well. Advanced to water without any issues or distress.
[2019-03-02] MEDS: amLODIPine BESYLATE 5 MG TAB PO SCH (09:29)
[2019-03-02] MEDS: METOPROLOL TARTRATE 25 MG TAB PO SCH ×2 (09:30→21:35)
[2019-03-02] MEDS: ENOXAPARIN SOD 30 MG/0.3 ML SYRINGE SC SCH (09:30)
--- NOTE | 2019-03-02 10:00 | NUR ---
FAMILY BEDSIDE Updated patients anay Rey on plan of care for the day. All questions and concerns addressed at this time.
--- NOTE | 2019-03-02 12:00 | NUR ---
KORIN RENTERIA Paged Dr. Best for transfer.
--- NOTE | 2019-03-02 12:03 | NUR ---
SPOKE TO MD Dr. Best return call. New orders received. Patient will be transferred to Tele.
--- NOTE | 2019-03-02 12:20 | NUR ---
BED ASSIGNMENT RECEIVED Patient will be moved to 275B.
--- NOTE | 2019-03-02 13:55 | NUR ---
REPORT GIVEN Gave report to Brianne GRAHAM. Patient going to room 275B.
--- NOTE | 2019-03-02 13:58 | NUR ---
RECEIVED REPORT FROM GLADYS CEJA PT GOING TO ROOM 900S
--- NOTE | 2019-03-02 14:20 | NUR ---
received pt from ICU via bed pt is awake and alert, no signs of distress at this time , family at bedside, with central line on left IJ in place, with fabian catheter draining clear yellow urine, will continue to monitor.
--- NOTE | 2019-03-02 14:25 | NUR ---
TRANSFERRED PATIENT Patient transferred to 275B with self and tech. Patient in bed with tele monitor attached. Patient tolerated well.
[2019-03-02] MEDS: SODIUM CHLORIDE 0.9% 1,000 ML IV SCH (14:44)
--- NOTE | 2019-03-02 14:51 | NUR ---
Nutrition Follow-up Notes Wt.: 45.4 KG Pt`s successfully extubated sleeping with no family by bedside. per records pt with improving PNA. pt with no distress noted currently on cardiac diet with no PO recorded yet as pt recently advanced on diet Est. Needs BW 45 [id number] kcal (30-33kcal/kgBW), 54-63 gms pro (1.2-1.4 gms/kgBW d/t ESRD on HD). Will continue to monitor pertinent labs and reassess nutrient need prn Labs: GLU 168 H, CA 8.4 L, ALB 2.9 L. Skin: Kennedy scale 14, mod risk, pt's with pressure area sacrum per joint finisher. GI: Pt had 2 BM today per joint finisher. PES: Resolved: Impaired swallowing r.t current medical condition aeb pt`s intubated sedated with order of NPO Altered nutrition related lab values r/t current/chronic medical condition aeb elev RFT hyperglycemia, hypocalcemia, mild hypoalb Will continue to monitor PO intake, skin status, pertinent labs and weight trend. F/u in 3-5 days. Rec.: 1.) refer to CDE on DC. 2) continue current plamn of care
[2019-03-02] MEDS ORDERED: VANCOMYCIN 500 MG in D5W 5% 100 ML IV ONE (15:00)
--- NOTE | 2019-03-02 15:00 | NUR ---
pt ambulated with physical therapy using walker with moderate assist.
--- NOTE | 2019-03-02 15:20 | NUR ---
Dr. garza at bedside received orders for social worker psychiatric consult for physical therapy and bedside commode, made aware of potassium 3.3, received order for potassium 50 meq liquid one time dose.
[2019-03-02] MEDS ORDERED: POTASSIUM EFFERVESENT TAB 25 MEQ PO ONE (15:30)
[2019-03-02] MEDS: ACETAMINOPHEN 500 MG TAB PO PRN (17:15)
--- NOTE | 2019-03-02 18:57 | NUR ---
Discharge planning per consult, patient has orders for home health and a 3:1 bedside commode. Referral faxed to [facility], placed a follow up call, spoke with Mayra, was advised they will accept this patient. Referral faxed to [facility], placed a follow up call, spoke with Radha, was advised they needed auth. Auth request sent to [facility]. Auths obtained -[id number] ([facility] was not advised of auth number. Please call to advised and provide auth number to [phone]) auth was provided to Radha at &-[id number];she advised they will deliver the commode o=to the patient's home on 03.03.19. Nurse Decker was advised of dc plan. Addendum: 03/02/19 at 1905 by MAURO MAYERS Amended: Links added.
--- NOTE | 2019-03-02 19:00 | NUR ---
[facility] social work specialist called per [facility] pt is okay for discharge, [facility] accepted the pt for home health for physical therapy and [facility] will deliver the bedside commode in the pt's house. Addendum: 03/02/19 at 1939 by Brianne Stafford RN [facility] TEL# [phone] [facility] TEL# [phone] FAMILY PROVIDED WITH THE PHONE NUMBER.
--- NOTE | 2019-03-02 19:20 | NUR ---
Opening Shift Note Report received from day shift RN. Assumed care of patient. Patient laying in bed awake and alert x4. Family at bedside. No S/S of distress/SOB noted. Pineda in place hung below the bladder, draining freely. Bed locked and in the lowest position. Call light left within reach. Instructed on POC and to call for assist PRN, will continue to monitor for changes Q1hr and PRN.
[2019-03-03] MEDS: IPRATROPIUM BROM 0.5 MG/2.5ML INH SOL NEB SCH ×3 (00:29→12:38)
[2019-03-03] MEDS: ALBUTEROL SULF 2.5 MG/0.5ML(0.5%) NEB SOLN NEB SCH ×3 (00:29→12:37)
[2019-03-03] MEDS: PIPERACILLIN-TAZOB 2.25GM 50 ML IV SCH (04:38)
[2019-03-03] MEDS: SODIUM CHLORIDE 0.9% 1,000 ML IV SCH (04:38)
[2019-03-03 05:00] VITALS: BP 127/59
[2019-03-03 05:44] LABS: Basophils # (auto) 0 uL; Basophils % (auto) 0.5 % (0.0-2.0); Eosinophils # (auto) 0.2 uL; Eosinophils % (auto) 1.9 % (0.0-7.0); Hematocrit 25.1 % (36.0-46.0); Hemoglobin 8.5 g/dL (12.2-16.2); Lymphocytes # (auto) 2.1 uL; Lymphocytes % (auto) 21.8 % (10.0-50.0); Mean Corpuscular Hemoglobin 32.2 pg (28.0-32.0); Mean Corpuscular Hgb Conc. 33.9 g/dL (32.0-36.0); Mean Corpuscular Volume 94.9 fL (80.0-100.0); Monocytes # (auto) 0.8 uL; Neutrophils # (auto) 6.3 uL; Neutrophils % (auto) 66.8 % (37.0-80.0); Platelet Count (auto) 277 10^3/uL (140-450); Red Blood Cells 2.65 10^6/uL (4.0-5.20); White Blood Cell 9.4 10^3/uL (4.4-10.8)
[2019-03-03 05:55] LABS: Albumin 2.6 g/dL (3.4-5.0); BUN/Creatinine Ratio 12.6; Potassium 4.9 mmol/L (3.5-5.1)
[2019-03-03 05:58] LABS: Total Protein 6.4 g/dL (6.4-8.2)
[2019-03-03] MEDS: InsuLIN REG 1unit/0.01ml Soln (100units/ml) SC SCH ×2 (06:00→12:00)
[2019-03-03] MEDS: ACCU-CHEK COMFORT CURVE STRIP VI SCH ×2 (06:27→11:59)
[2019-03-03] MEDS: HYDROcodone-ACET 10/325MG TAB PO PRN (06:28)
[2019-03-03 09:00] VITALS: BP 134/56
[2019-03-03] MEDS: ACETAMINOPHEN 500 MG TAB PO PRN (09:12)
[2019-03-03] MEDS: METOPROLOL TARTRATE 25 MG TAB PO SCH (09:21)
[2019-03-03] MEDS: ENOXAPARIN SOD 30 MG/0.3 ML SYRINGE SC SCH (09:21)
[2019-03-03] MEDS: amLODIPine BESYLATE 5 MG TAB PO SCH (09:22)
--- NOTE | 2019-03-03 10:40 | NUR ---
pt seen by Nasir per Dr. Best pt can go home, ordered to dc fabian and central line.
[2019-03-03] MEDS ORDERED: BACL10TA PO (12:10)
[2019-03-03 12:15] VITALS: BP 134/56
--- NOTE | 2019-03-03 13:15 | NUR ---
CENTRAL LINE REMOVED WITH CATHETER INTACT, PRESSURE DRESSING APPLIED, NO BLEEDING NOTED.
--- NOTE | 2019-03-03 13:35 | NUR ---
Discharge instructions given as ordered. Encourage to follow up with DR. MANCILLA IN [address] SANTOS IN 3-4 DAYS, PT WILL MAKE HER OWN APPOINTMENT, OFFICE IS CLOSE ON WEEKEND. All questions and concerns addressed. Patient verbalized understanding. Medication reconciliation form completed and copy given to patient. IV removed with catheter intact, pressure dressing applied, fabian catheter removed. Telemetry unit returned to ICU. Patient taken to vehicle via wheelchair with all personal belongings, accompanied by staff and family member. No distress noted at time of departure.
[2019-03-03] MEDS ORDERED: PIPERACILLIN-TAZOB 2.25GM 50 ML IV SCH ×2 (15:00→17:00)
[2019-03-04] MEDS ORDERED: VANCOMYCIN 750mg/250ml 250 ML IV SCH (06:00)
[2019-04-05] MEDS ORDERED: METO25TA5 PO (08:31)
[2019-04-05] MEDS ORDERED: DULO20CA PO (08:40)
[2019-04-05] MEDS ORDERED: LINA5TAB PO (08:40)
[2019-04-05] MEDS ORDERED: PROM25TA5 PO (08:40)
[2019-04-05] MEDS ORDERED: FURO80TA3 PO (08:40)
[2019-04-05] MEDS ORDERED: GLIP10TA9 PO (08:40)
[2019-04-05] MEDS ORDERED: ERGO2000 PO (08:40)
[2019-04-05] MEDS ORDERED: AMIO100T3 OR (08:40)
[2019-04-05] MEDS ORDERED: TRAZ100T2 PO (08:40)
[2019-04-05] MEDS ORDERED: BACL10TA PO (08:40)
[2019-04-05] MEDS ORDERED: CYCL1TAB18 PO (08:40)
== END 2019-03-03 13:35 | disposition home health service (06) | DRG 871 ==
LOC: ER 11:05 → TELE 11:06 → ICU WEST 23:19 → TELE-WESTW 03-02 14:23
PROVIDERS: ADMIT Nurse Practitioner Acute Care; ATTEND Internal Medicine
PROC: 5A1945Z Respiratory Ventilation, 24-96 Consecutive Hours (ICD-10-PCS; principal; 2019-02-26)
PROC: 0BH17EZ Insertion of Endotracheal Airway into Trachea, Via Natural or Artificial Opening (ICD-10-PCS; 2019-02-26)
DX: A41.9 Sepsis, unspecified organism (principal); G93.41 Metabolic encephalopathy; J96.02 Acute respiratory failure with hypercapnia; J96.01 Acute respiratory failure with hypoxia; N18.6 End stage renal disease; J18.9 Pneumonia, unspecified organism; I13.2 Hypertensive heart and chronic kidney disease with heart failure and with stage 5 chronic kidney disease, or end stage renal disease; K21.9 Gastro-esophageal reflux disease without esophagitis; K22.8 Other specified diseases of esophagus; I48.91 Unspecified atrial fibrillation; E11.65 Type 2 diabetes mellitus with hyperglycemia; E11.22 Type 2 diabetes mellitus with diabetic chronic kidney disease; M54.5 Low back pain; G89.29 Other chronic pain; D63.8 Anemia in other chronic diseases classified elsewhere; F41.1 Generalized anxiety disorder; E78.5 Hyperlipidemia, unspecified; F17.210 Nicotine dependence, cigarettes, uncomplicated; I50.9 Heart failure, unspecified; Z80.0 Family history of malignant neoplasm of digestive organs; Z82.49 Family history of ischemic heart disease and other diseases of the circulatory system; Z87.442 Personal history of urinary calculi; Z90.710 Acquired absence of both cervix and uterus; Z99.2 Dependence on renal dialysis; Z79.899 Other long term (current) drug therapy; Z79.4 Long term (current) use of insulin; Z79.01 Long term (current) use of anticoagulants; Z85.038 Personal history of other malignant neoplasm of large intestine; Z88.1 Allergy status to other antibiotic agents
CPT/HCPCS: 36415; 36600; 70450; 71045; 80048; 80053; 80202; 80307; 80320; 82140; 82805; 82962; 83605; 83735; 84484; 85025; 85610; 85730; 87040; 87070; 87081; 87086; 87205; 87804; 93005; 94002; 94003; 94640; 96361; 96365; 96375; 97116; 97530; G0378; J0330; J1815; J2250; J2405; J2543; J3480; J7060

== ENCOUNTER 2019-11-07 22:58 | Emergency (ER) | payer OTHER, MEDICAID ==
[~2019-11-07] VITALS: Ht 147.3 cm; Wt 59.0 kg
[~2019-11-07 22:58] MED LIST changes: +AMIO100T3 OR; -AMLO5TAB15 PO; -APIX5TAB OR; +ERGO2000 PO; +INSLANTI SC; -INSULIN; -LEVO250T19 PO; +METO25TA5 PO; -NIFE30TA76 PO; +TRAZ100T3 PO
[2019-11-08 00:22] LABS: Urine Amorphous Crystal FEW /hpf (None Seen); Urine Bacteria FEW /hpf (None Seen); Urine Blood TRACE /uL (Negative); Urine Hyaline Cast FEW /lpf (0 - 2); Urine Specific Gravity 1.014 (1.001-1.035); Urine WBC 2 /hpf (0 - 5)
[2019-11-08 00:34] LABS: Alanine Aminotransferase 23 U/L (13-56); Albumin 3.9 g/dL (3.4-5.0); Anion Gap 13 (5-15); Aspartate Aminotransferase 33 U/L (15-37); BUN/Creatinine Ratio 20.9; Blood Urea Nitrogen 66 mg/dL (7-18); Calcium 8.2 mg/dL (8.5-10.1); Carbon Dioxide 17 mmol/L (21-32); Chloride 100 mmol/L (98-107); GFR African American 19 mL/min; GFR Non-African American 16 mL/min; Glucose 282 mg/dL (74-106); Potassium 4.4 mmol/L (3.5-5.1); Sodium 130 mmol/L (136-145)
[2019-11-08 00:36] LABS: Amphetamine Screen, Urine NEGATIVE (NEGATIVE); Barbiturate Scree,Urine NEGATIVE (NEGATIVE); Benzodiazephine Screen, Urine NEGATIVE (NEGATIVE); Cannabinoid Screen, Urine NEGATIVE (NEGATIVE); Cocaine Screen, Urine NEGATIVE (NEGATIVE); Phencyclidine Screen, Urine NEGATIVE (NEGATIVE)
[2019-11-08 00:37] LABS: Alcohol, Urine < 3.0 mg/dL (0-10)
[2019-11-08 00:38] LABS: Alkaline Phosphatase 201 U/L (45-117); Bilirubin, Total 0.3 mg/dL (0.2-1.0); Total Protein 8.5 g/dL (6.4-8.2)
[2019-11-08 00:44] LABS: Opiate Scree,Urine POSITIVE (NEGATIVE)
[2019-11-08] MEDS ORDERED: fentaNYL CITRATE 100 MCG/2 ML VL ONE (01:57)
[2019-11-08 02:00] LABS: Basophils # (auto) 0 10 ^3/uL (0-0.2); Basophils % (auto) 0.3 % (0.0-2.0); Eosinophils # (auto) 0 10 ^3/uL (0-0.8); Hemoglobin 9.9 g/dL (12.2-16.2); Lymphocytes # (auto) 1.4 10 ^3/uL (0.4-5.4); Lymphocytes % (auto) 8.6 % (10.0-50.0); Mean Corpuscular Hemoglobin 30.1 pg (28.0-32.0); Mean Corpuscular Volume 91.2 fL (80.0-100.0); Monocytes # (auto) 0.9 10 ^3/uL (0-1.3); Monocytes % (auto) 5.6 % (0.0-12.0); Neutrophils % (auto) 85.5 % (37.0-80.0); Nucleated Red Blood Cells % 0.1 %; Platelet Count (auto) 281 10^3/uL (140-450); Red Blood Cells 3.29 10^6/uL (4.0-5.20); Red Cell Distribution Width 13.7 % (11.8-14.3); White Blood Cell 16.3 10^3/uL (4.4-10.8)
[2019-11-08] MEDS ORDERED: fentaNYL CITRATE 100 MCG/2 ML VL IM ONE (02:00)
[2019-11-08 02:14] LABS: INR 0.98 (0.9-1.15); Partial Thromboplastin Time 26.6 sec (23.64-32.05)
[2019-11-08 02:23] LABS: Lactic Acid w/Reflex 4.5 mmol/L (0.4-2.0)
[2019-11-08 06:30] VITALS: BP 126/48
== END 2019-11-08 08:07 | disposition home or self-care (01) ==
LOC: ER 22:58
DX: T43.4X5A Adverse effect of butyrophenone and thiothixene neuroleptics, initial encounter (principal); T42.4X5A Adverse effect of benzodiazepines, initial encounter; R41.82 Altered mental status, unspecified; F41.8 Other specified anxiety disorders; E11.22 Type 2 diabetes mellitus with diabetic chronic kidney disease; I13.2 Hypertensive heart and chronic kidney disease with heart failure and with stage 5 chronic kidney disease, or end stage renal disease; I50.9 Heart failure, unspecified; N18.6 End stage renal disease; E78.5 Hyperlipidemia, unspecified; I25.2 Old myocardial infarction; Z86.2 Personal history of diseases of the blood and blood-forming organs and certain disorders involving the immune mechanism; Z87.442 Personal history of urinary calculi; Z87.440 Personal history of urinary (tract) infections; Z90.710 Acquired absence of both cervix and uterus; Z79.899 Other long term (current) drug therapy; Z88.1 Allergy status to other antibiotic agents; Z88.8 Allergy status to other drugs, medicaments and biological substances; Y92.89 Other specified places as the place of occurrence of the external cause
CPT/HCPCS: 36415; 71045; 80053; 80307; 81001; 83605; 83880; 84484; 85025; 85610; 85730; 87040; 96372; 99285; J3010; 51701

== ENCOUNTER 2019-12-07 05:29 | Inpatient (IN) | payer OTHER, MEDICAID ==
[~2019-12-07] VITALS: Ht 152.4 cm; Wt 55.9 kg
[2019-12-07] MEDS ORDERED: LORazepam 2MG/ML-1ML VIAL IV ONE ×2 (06:45→15:15)
[2019-12-07] MEDS ORDERED: PROMETHAZINE HCL 25 MG/ML 1ML IV ONE (07:00)
[2019-12-07] MEDS ORDERED: PROMETHAZINE HCL 25 MG/ML 1ML IM ONE (07:30)
[2019-12-07 10:00] LABS: Basophils # (auto) 0 10 ^3/uL (0-0.2); Basophils % (auto) 0.4 % (0.0-2.0); Eosinophils # (auto) 0 10 ^3/uL (0-0.8); Eosinophils % (auto) 0.1 % (0.0-7.0); Hematocrit 30.8 % (36.0-46.0); Hemoglobin 10.3 g/dL (12.2-16.2); Lymphocytes # (auto) 1.1 10 ^3/uL (0.4-5.4); Lymphocytes % (auto) 9.1 % (10.0-50.0); Mean Corpuscular Hemoglobin 30.7 pg (28.0-32.0); Mean Corpuscular Hgb Conc. 33.4 g/dL (32.0-36.0); Mean Corpuscular Volume 91.7 fL (80.0-100.0); Monocytes # (auto) 0.5 10 ^3/uL (0-1.3); Monocytes % (auto) 4.3 % (0.0-12.0); Neutrophils # (auto) 10.8 10 ^3/uL (1.6-8.6); Neutrophils % (auto) 86.1 % (37.0-80.0); Platelet Count (auto) 298 10^3/uL (140-450); Red Blood Cells 3.36 10^6/uL (4.0-5.20); Red Cell Distribution Width 13.8 % (11.8-14.3); White Blood Cell 12.5 10^3/uL (4.4-10.8)
[2019-12-07 10:23] LABS: Calcium 8.6 mg/dL (8.5-10.1); Potassium 4.5 mmol/L (3.5-5.1)
[2019-12-07 10:24] LABS: Lactic Acid w/Reflex 2.6 mmol/L (0.4-2.0)
[2019-12-07 10:31] LABS: Albumin 3.9 g/dL (3.4-5.0); BUN/Creatinine Ratio 17.2; Bilirubin, Total 0.2 mg/dL (0.2-1.0); Magnesium 2.9 mg/dL (1.6-2.6); Total Protein 8.2 g/dL (6.4-8.2)
[2019-12-07 10:36] LABS: INR 0.97 (0.9-1.15); Partial Thromboplastin Time 26.1 sec (23.64-32.05)
[2019-12-07 11:19] LABS: Urine Bacteria FEW /hpf (None Seen); Urine Blood Negative /uL (Negative); Urine Specific Gravity 1.012 (1.001-1.035); Urine WBC 2 /hpf (0 - 5)
[2019-12-07 11:44] LABS: Barbiturate Scree,Urine NEGATIVE (NEGATIVE); Benzodiazephine Screen, Urine NEGATIVE (NEGATIVE); Cannabinoid Screen, Urine NEGATIVE (NEGATIVE); Cocaine Screen, Urine NEGATIVE (NEGATIVE); Opiate Scree,Urine POSITIVE (NEGATIVE); Phencyclidine Screen, Urine NEGATIVE (NEGATIVE)
[2019-12-07 11:51] LABS: Amphetamine Screen, Urine NEGATIVE (NEGATIVE)
[2019-12-07] MEDS ORDERED: cefTRIAXone 1GM/50ML D5W 50 ML IV ONE (12:30)
[2019-12-07] MEDS ORDERED: ENOXAPARIN SOD 60 MG/0.6 ML SYRINGE SC ONE (12:30)
[2019-12-07] MEDS ORDERED: NITROGLYCERIN 0.4 MG SL TAB SL PRN (14:15)
[2019-12-07] MEDS ORDERED: MORPHINE SULF INJ 2 MG/ML SYRINGE 1ML IV PRN ×2 (14:15→15:30)
[2019-12-07] MEDS ORDERED: ACETAMINOPHEN 500 MG TAB PO PRN (15:30)
[2019-12-07] MEDS ORDERED: PROMETHAZINE HCL 25 MG/ML 1ML IV PRN (15:30)
[2019-12-07] MEDS ORDERED: TEMAZEPAM 15 MG CAP PO PRN (15:30)
[2019-12-07] MEDS ORDERED: traMADol HCL 50 MG TAB PO PRN (15:30)
[2019-12-07] MEDS ORDERED: levoFLOXacin 500MG 100 ML IV ONE (15:30)
[2019-12-07] MEDS ORDERED: DEXTROSE (50%) 50ML SYRG IV PRN (15:30)
[2019-12-07] MEDS ORDERED: APIX5TAB PO (16:38)
[2019-12-07] MEDS ORDERED: ZOLP5TAB5 PO (16:38)
[2019-12-07] MEDS ORDERED: LINA5TAB PO (16:38)
[2019-12-07] MEDS ORDERED: PATI1POW PO (16:38)
[2019-12-07] MEDS ORDERED: NIFE1TAB31 PO (16:38)
[2019-12-07] MEDS ORDERED: CYCL-611 PO (16:38)
[2019-12-07] MEDS ORDERED: FLUT50SP NAS (16:38)
[2019-12-07] MEDS ORDERED: GLIP10TA9 PO (16:38)
[2019-12-07] MEDS ORDERED: HYDR-4798 PO (16:38)
[2019-12-07 16:44] VITALS: BP 139/61
[2019-12-07] MEDS: SODIUM CHLORIDE 0.9% 1,000 ML IV SCH (16:55)
[2019-12-07] MEDS: InsuLIN REG 1unit/0.01ml Soln (100units/ml) SC SCH ×2 (17:00→22:00)
[2019-12-07] MEDS: ACCU-CHEK COMFORT CURVE STRIP VI SCH ×2 (17:11→22:12)
[2019-12-07] MEDS ORDERED: INSU1INJ19 SC (19:12)
[2019-12-07] MEDS ORDERED: LORA1TAB23 PO (19:15)
[2019-12-07] MEDS ORDERED: FENT12DI TD (19:16)
[2019-12-07 20:00] VITALS: BP 152/75
[2019-12-07] MEDS ORDERED: FAMOTIDINE 20 MG TAB PO SCH (22:00)
[2019-12-08] VITALS: BP 122/68
[2019-12-08] MEDS: SODIUM CHLORIDE 0.9% 1,000 ML IV SCH ×2 (00:53→11:29)
[2019-12-08 04:00] VITALS: BP 118/72
[2019-12-08 06:38] LABS: Basophils # (auto) 0.1 10 ^3/uL (0-0.2); Basophils % (auto) 0.8 % (0.0-2.0); Eosinophils # (auto) 0.1 10 ^3/uL (0-0.8); Eosinophils % (auto) 1.4 % (0.0-7.0); Hematocrit 32.1 % (36.0-46.0); Hemoglobin 10.6 g/dL (12.2-16.2); Lymphocytes # (auto) 1.5 10 ^3/uL (0.4-5.4); Lymphocytes % (auto) 20.4 % (10.0-50.0); Mean Corpuscular Hemoglobin 30.7 pg (28.0-32.0); Mean Corpuscular Hgb Conc. 33.1 g/dL (32.0-36.0); Mean Corpuscular Volume 92.8 fL (80.0-100.0); Monocytes # (auto) 0.7 10 ^3/uL (0-1.3); Monocytes % (auto) 9.2 % (0.0-12.0); Neutrophils % (auto) 68.2 % (37.0-80.0); Nucleated Red Blood Cells % 0.1 %; Platelet Count (auto) 294 10^3/uL (140-450); Red Blood Cells 3.46 10^6/uL (4.0-5.20); White Blood Cell 7.3 10^3/uL (4.4-10.8)
[2019-12-08 06:48] LABS: Albumin 3.7 g/dL (3.4-5.0); BUN/Creatinine Ratio 20.1; Calcium 8.5 mg/dL (8.5-10.1)
[2019-12-08 06:50] LABS: Bilirubin, Total 0.4 mg/dL (0.2-1.0); Total Protein 8.1 g/dL (6.4-8.2)
[2019-12-08] MEDS: ACCU-CHEK COMFORT CURVE STRIP VI SCH ×3 (06:55→17:00)
[2019-12-08] MEDS: InsuLIN REG 1unit/0.01ml Soln (100units/ml) SC SCH ×3 (06:55→17:00)
[2019-12-08] MEDS ORDERED: ASPirin 81 mg TAB PO SCH (10:00)
[2019-12-08] MEDS ORDERED: levoFLOXacin 250MG 50 ML IV SCH (10:00)
[2019-12-08 14:00] VITALS: BP 190/84
[2019-12-08 15:46] VITALS: BP 114/68
== END 2019-12-08 17:15 | disposition home or self-care (01) | DRG 689 ==
LOC: ER 05:29 → EDBD 05:29 → TELE 05:30 → TELE-WESTW 15:56
PROVIDERS: ADMIT Internal Medicine; ATTEND Internal Medicine
DX: N39.0 Urinary tract infection, site not specified (principal); N18.6 End stage renal disease; I13.2 Hypertensive heart and chronic kidney disease with heart failure and with stage 5 chronic kidney disease, or end stage renal disease; E87.2 Acidosis; D63.8 Anemia in other chronic diseases classified elsewhere; E11.22 Type 2 diabetes mellitus with diabetic chronic kidney disease; E78.5 Hyperlipidemia, unspecified; F41.9 Anxiety disorder, unspecified; F03.90 Unspecified dementia, unspecified severity, without behavioral disturbance, psychotic disturbance, mood disturbance, and anxiety; I50.9 Heart failure, unspecified; F17.200 Nicotine dependence, unspecified, uncomplicated; D72.829 Elevated white blood cell count, unspecified; N20.0 Calculus of kidney; B95.2 Enterococcus as the cause of diseases classified elsewhere; G89.29 Other chronic pain; M25.512 Pain in left shoulder; E11.40 Type 2 diabetes mellitus with diabetic neuropathy, unspecified; Z82.49 Family history of ischemic heart disease and other diseases of the circulatory system; Z87.442 Personal history of urinary calculi; Z90.710 Acquired absence of both cervix and uterus; I25.2 Old myocardial infarction; Z80.0 Family history of malignant neoplasm of digestive organs
CPT/HCPCS: 36415; 70450; 71045; 80053; 80307; 80320; 81001; 82550; 82962; 83036; 83605; 83735; 84443; 84484; 85025; 85610; 85730; 87086; 87088; 87186; 96365; 96372; 96375; G0378; J0696; J1956

== ENCOUNTER 2020-01-09 10:57 | Inpatient (IN) | payer OTHER, MEDICAID ==
[~2020-01-09] VITALS: Ht 152.4 cm; Wt 51.7 kg
[~2020-01-09 10:57] MED LIST changes: +APIX5TAB PO; +CYCL-611 PO; +FENT12DI TD; +FLUT50SP NAS; +GLIP10TA9 PO; +HYDR-4798 PO; -INSLANTI SC; +INSU1INJ19 SC; +LINA5TAB PO; +LORA1TAB23 PO; +NIFE1TAB31 PO; +PATI1POW PO; -TRAZ100T3 PO; +ZOLP5TAB5 PO
[2020-01-09 11:57] LABS: Basophils # (auto) 0 10 ^3/uL (0-0.2); Basophils % (auto) 0.4 % (0.0-2.0); Eosinophils # (auto) 0.1 10 ^3/uL (0-0.8); Eosinophils % (auto) 0.6 % (0.0-7.0); Hematocrit 33.6 % (36.0-46.0); Lymphocytes # (auto) 1.3 10 ^3/uL (0.4-5.4); Lymphocytes % (auto) 9.8 % (10.0-50.0); Mean Corpuscular Hemoglobin 30.4 pg (28.0-32.0); Mean Corpuscular Hgb Conc. 32.7 g/dL (32.0-36.0); Monocytes # (auto) 0.9 10 ^3/uL (0-1.3); Monocytes % (auto) 6.3 % (0.0-12.0); Neutrophils # (auto) 11.3 10 ^3/uL (1.6-8.6); Neutrophils % (auto) 82.9 % (37.0-80.0); Platelet Count (auto) 465 10^3/uL (140-450); Red Blood Cells 3.61 10^6/uL (4.0-5.20); Red Cell Distribution Width 13.4 % (11.8-14.3); White Blood Cell 13.6 10^3/uL (4.4-10.8)
[2020-01-09 12:11] LABS: Urine Bacteria NONE SEEN /hpf (None Seen); Urine Blood 1+ /uL (Negative); Urine Mucus FEW (None Seen); Urine Specific Gravity 1.009 (1.001-1.035); Urine WBC 8 /hpf (0 - 5)
[2020-01-09 12:18] LABS: Albumin 4.2 g/dL (3.4-5.0); BUN/Creatinine Ratio 24.7; Calcium 9.1 mg/dL (8.5-10.1)
[2020-01-09 12:20] LABS: Bilirubin, Total 0.4 mg/dL (0.2-1.0); Total Protein 9.1 g/dL (6.4-8.2)
[2020-01-09 12:29] LABS: Potassium 2.9 mmol/L (3.5-5.1)
[2020-01-09] MEDS ORDERED: SODIUM CHLORIDE 0.9% 1,000 ML IVB ONE (15:20)
[2020-01-09] MEDS ORDERED: ONDANSETRON HCL 4 MG/2 ML VIAL IV ONE ×2 (15:30→16:15)
[2020-01-09] MEDS ORDERED: MORPHINE SULF INJ 2 MG/ML SYRINGE 1ML IV ONE (16:15)
[2020-01-09] MEDS ORDERED: PANTOPRAZOLE 40 MG/10 ML VIAL INJ IV ONE (16:30)
[2020-01-09 16:31] LABS: INR 0.98 (0.9-1.15); Partial Thromboplastin Time 27.2 sec (23.0-31.2)
[2020-01-09] MEDS ORDERED: POTASSIUM CHL 20 Meq TABLET PO ONE (18:45)
[2020-01-09] MEDS ORDERED: ONDANSETRON HCL 4 MG/2 ML VIAL IV PRN (22:00)
[2020-01-09] MEDS ORDERED: MORPHINE SULFATE 4 MG/ML SYR/VIAL IV PRN (22:00)
[2020-01-09] MEDS ORDERED: SODIUM CHLORIDE 0.9% 1,000 ML IV SCH (22:00)
[2020-01-09] MEDS ORDERED: SODIUM CHLORIDE 0.9% 1,000 ML IV ONE (23:15)
[2020-01-09] MEDS ORDERED: ZOLPIDEM TARTRATE 5 MG TAB PO PRN (23:15)
[2020-01-10 00:36] VITALS: BP 159/73
--- NOTE | 2020-01-10 01:11 | NUR ---
Assisted in admission. Endorsed to Primary RN VTE question/physical-skin assessments/ patient requesting BP meds-pain meds-check her sugar level with accucheck due to patient being diabetic / and patient home medications needs to be put in computer-sent off to pharmacy. Also notified primary RN of patient belonging list is completed and its in physical chart, patient has partial lower dentures.
[2020-01-10] MEDS ORDERED: VANCOMYCIN PER PHARMACY 0 MG IV SCH (03:15)
[2020-01-10] MEDS ORDERED: VANCOMYCIN 1GM/250ML 250 ML IV ONE (03:15)
[2020-01-10 05:00] VITALS: BP 136/63
[2020-01-10] MEDS ORDERED: DEXTROSE (50%) 50ML SYRG IV PRN (06:45)
[2020-01-10] MEDS: InsuLIN REG 1unit/0.01ml Soln (100units/ml) SC SCH ×2 (07:00→11:06)
[2020-01-10] MEDS: ACCU-CHEK COMFORT CURVE STRIP VI SCH ×2 (07:05→11:06)
[2020-01-10] MEDS ORDERED: SOD CHL 0.9%/ KCL 20MEQ 1,000 ML IV SCH (09:00)
[2020-01-10 09:41] VITALS: BP 138/69
[2020-01-10 09:55] LABS: Basophils # (auto) 0 10 ^3/uL (0-0.2); Hemoglobin 10.7 g/dL (12.2-16.2); Monocytes # (auto) 0.6 10 ^3/uL (0-1.3); Neutrophils # (auto) 7.1 10 ^3/uL (1.6-8.6)
[2020-01-10 09:59] LABS: Basophils % (auto) 0.5 % (0.0-2.0); Eosinophils # (auto) 0.1 10 ^3/uL (0-0.8); Eosinophils % (auto) 1.4 % (0.0-7.0); Hematocrit 31.9 % (36.0-46.0); Lymphocytes # (auto) 1.5 10 ^3/uL (0.4-5.4); Lymphocytes % (auto) 15.9 % (10.0-50.0); Mean Corpuscular Hgb Conc. 33.7 g/dL (32.0-36.0); Monocytes % (auto) 6.4 % (0.0-12.0); Neutrophils % (auto) 75.8 % (37.0-80.0); Platelet Count (auto) 463 10^3/uL (140-450); Red Blood Cells 3.47 10^6/uL (4.0-5.20); Red Cell Distribution Width 13.8 % (11.8-14.3); White Blood Cell 9.4 10^3/uL (4.4-10.8)
[2020-01-10] MEDS ORDERED: HEPARIN SODIUM (PORCINE) 5000 UNITS/ML 1ML VIAL SC SCH (10:00)
[2020-01-10] MEDS ORDERED: PANTOPRAZOLE 40 MG/10 ML VIAL INJ IV SCH (10:00)
[2020-01-10] MEDS ORDERED: PARoxetine 20 MG TAB PO SCH (10:00)
[2020-01-10] MEDS ORDERED: ALLOPURINOL 100 MG TAB PO SCH (10:00)
[2020-01-10] MEDS ORDERED: hydrALAZINE HCL 25 MG TAB PO SCH (10:00)
[2020-01-10] MEDS ORDERED: cefTRIAXone 1GM/50ML D5W 50 ML IV SCH (10:00)
[2020-01-10 10:07] LABS: Albumin 3.8 g/dL (3.4-5.0); Calcium 8.2 mg/dL (8.5-10.1); Potassium 3.5 mmol/L (3.5-5.1)
[2020-01-10 10:10] LABS: BUN/Creatinine Ratio 23.8; Bilirubin, Total 0.4 mg/dL (0.2-1.0); Total Protein 7.8 g/dL (6.4-8.2)
--- NOTE | 2020-01-10 10:15 | NUR ---
RE: Critical lab value Received critical BUN lab value. Level is trending down. MD's are aware.
--- NOTE | 2020-01-10 10:58 | NUR ---
M[facility]LINE ORDER CANCELLED. SPOKE WITH PRIMARY RN, PT DOES NOT NEED IT, SHE WILL BE DISCHARGE HOME.
--- NOTE | 2020-01-10 11:06 | NUR ---
RE: Scheduled medications Scheduled medications were scanned per protocol. Mobile computer shut off on RN prior to documentation being saved.
--- NOTE | 2020-01-10 11:07 | NUR ---
RE: Refusal of medications Patient refused scheduled Heparin. Patient stated "that okay. I walk when I get home. I'm going home today." Patient refused for scheduled Accu check. Patient stated "That okay. I don't need to." Education provided to patient on MD orders RE: medications. Patient verbalized understanding. Patient is A&Ox4.
--- NOTE | 2020-01-10 12:13 | NUR ---
Assessment Patient is a 64-year-old female. Assessment was completed with patient Gene . Per Gene prior to admission patient lived home with him and functioned with assistance. Gene is patient caregiver. Per Gene patient has a hospital bed, wheelchair, walker and home oxygen. Per Gene patient will return home to her prior living arrangements post discharge and he will transport patient home. Advised patient there is a social service consult to resume hospice. Per Gene patient is on service with [facility]. Informed Gene clinical information will be faxed to [facility] hospice. Informed Gene he has the right to participate in all discharge planning. Gene verbalized understanding and agreed to discharge plan. Faxed clinical information to [facility]. Per Daja with [facility] they will resume service upon discharge day. Informed GLADYS Bowens. Addendum: 01/10/20 at 1218 by CELESTINA LYNNE Amended: Links added.
[2020-01-10 12:39] VITALS: BP 138/69
[2020-01-10 12:51] VITALS: BP 158/65
--- NOTE | 2020-01-10 13:48 | NUR ---
Discharge Discharge education and paperwork provided to the patient per MD order. Patient verbalized understanding. Informed patient of discharge prescriptions electronically sent to preferred pharmacy. Patient verbalized understanding. IV removed with clean technique, catheter intact. Dressing applied. Patient tolerated well, no trauma to site. Telemonitor removed and returned. Patient reports having all personal belongings. Respirations even and unlabored, no distress noted. Patient's home medications held in hospital pharmacy returned to the patient. Patient's notified of discharge and transportation need. Mr. Smallwood verbalized understanding. ETA 10 minutes.
--- NOTE | 2020-01-10 14:05 | NUR ---
Transportation arrived to hospital Patient taken to hospital lobby via wheelchair accompanied by staff member. Respirations even and unlabored respirations, no distress noted.
== END 2020-01-10 14:05 | disposition hospice, home (50) | DRG 392 ==
LOC: ER 10:57 → TELE 10:58 → TELE-WESTW 23:17
PROVIDERS: ADMIT Hospitalist; ATTEND Hospitalist
DX: K52.9 Noninfective gastroenteritis and colitis, unspecified (principal); N17.9 Acute kidney failure, unspecified; E87.3 Alkalosis; E87.1 Hypo-osmolality and hyponatremia; I13.2 Hypertensive heart and chronic kidney disease with heart failure and with stage 5 chronic kidney disease, or end stage renal disease; N18.4 Chronic kidney disease, stage 4 (severe); D63.8 Anemia in other chronic diseases classified elsewhere; E87.6 Hypokalemia; G89.4 Chronic pain syndrome; G47.00 Insomnia, unspecified; I50.9 Heart failure, unspecified; I48.0 Paroxysmal atrial fibrillation; E11.22 Type 2 diabetes mellitus with diabetic chronic kidney disease; Z80.0 Family history of malignant neoplasm of digestive organs; Z82.49 Family history of ischemic heart disease and other diseases of the circulatory system; Z87.442 Personal history of urinary calculi; Z90.710 Acquired absence of both cervix and uterus; Z99.2 Dependence on renal dialysis; Z88.1 Allergy status to other antibiotic agents; E78.5 Hyperlipidemia, unspecified
CPT/HCPCS: 36415; 71045; 74176; 80053; 81001; 82150; 82962; 83605; 83690; 83735; 84484; 85025; 85610; 85730; 87040; 87086; 93005; 96361; 96365; 96367; 96375; 96376; C9113; G0378; J0696; J2405

== ENCOUNTER 2020-08-05 08:17 | Inpatient (IN) | payer OTHER, MEDICAID ==
[~2020-08-05] VITALS: Ht 147.3 cm; Wt 49.4 kg
[2020-08-05] MEDS ORDERED: DOPamine 1600MCG/ML D5W 250 ML IV ONE (09:00)
[2020-08-05 09:41] LABS: Basophils # (auto) 0.1 10 ^3/uL (0-0.2); Basophils % (auto) 0.5 % (0.0-2.0); Eosinophils # (auto) 0 10 ^3/uL (0-0.8); Eosinophils % (auto) 0.2 % (0.0-7.0); Hematocrit 35.2 % (36.0-46.0); Hemoglobin 11.9 g/dL (12.2-16.2); Lymphocytes # (auto) 1.2 10 ^3/uL (0.4-5.4); Lymphocytes % (auto) 6.3 % (10.0-50.0); Monocytes # (auto) 1.1 10 ^3/uL (0-1.3); Monocytes % (auto) 5.7 % (0.0-12.0); Neutrophils # (auto) 16.5 10 ^3/uL (1.6-8.6); Neutrophils % (auto) 87.3 % (37.0-80.0); Red Blood Cells 3.72 10^6/uL (4.0-5.20); White Blood Cell 18.9 10^3/uL (4.4-10.8)
[2020-08-05 09:42] LABS: Mean Corpuscular Hgb Conc. 33.9 g/dL (32.0-36.0); Mean Corpuscular Volume 94.5 fL (80.0-100.0); Platelet Count (auto) 425 10^3/uL (140-450); Red Cell Distribution Width 14.9 % (11.8-14.3)
[2020-08-05 09:51] LABS: Alanine Aminotransferase 19 U/L (13-56); Albumin 4.1 g/dL (3.4-5.0); Anion Gap 21 (5-15); Aspartate Aminotransferase 42 U/L (15-37); BUN/Creatinine Ratio 33.2; Calcium 8.7 mg/dL (8.5-10.1); Carbon Dioxide 30 mmol/L (21-32); Chloride 72 mmol/L (98-107); GFR African American 13 mL/min; GFR Non-African American 11 mL/min; Glucose 194 mg/dL (74-106); Sodium 123 mmol/L (136-145)
[2020-08-05 09:54] LABS: Alkaline Phosphatase 122 U/L (45-117); Bilirubin, Total 0.5 mg/dL (0.2-1.0); Total Protein 10.5 g/dL (6.4-8.2)
[2020-08-05 09:58] LABS: Blood Urea Nitrogen 149 mg/dL (7-18)
[2020-08-05] MEDS ORDERED: MORPHINE SULF INJ 2 MG/ML SYRINGE 1ML IV PRN (11:45)
[2020-08-05] MEDS ORDERED: HYDROcodone-ACET 5/325MG TAB PO PRN (11:45)
[2020-08-05] MEDS ORDERED: NITROGLYCERIN 0.4 MG SL TAB SL PRN (11:45)
[2020-08-05] MEDS ORDERED: SODIUM CHLORIDE 0.9% 500 ML IV ONE (11:45)
[2020-08-05] MEDS ORDERED: SODIUM BICARBONATE 50ML VIAL 150 ML in D5W 5% 1,000 ML IV SCH (11:45)
[2020-08-05] MEDS ORDERED: ACETAMINOPHEN 500 MG TAB PO PRN (11:45)
[2020-08-05] MEDS: ONDANSETRON HCL 4 MG/2 ML VIAL IV PRN ×2 (12:15→23:09)
[2020-08-05] MEDS: levoFLOXacin 250MG 50 ML IV SCH (12:40)
[2020-08-05 12:49] LABS: INR 1.02 (0.9-1.15); Partial Thromboplastin Time 27.3 sec (23.0-31.2)
[2020-08-05 13:01] LABS: Phosphorus 5.6 mg/dL (2.5-4.90); Uric Acid 8.6 mg/dL (2.6-6.0)
[2020-08-05] MEDS ORDERED: ALPRAZolam 0.5 MG TAB PO ONE (13:30)
[2020-08-05] MEDS ORDERED: ALPRAZolam 0.25 MG TAB ONE (13:33)
[2020-08-05] MEDS ORDERED: GLUCAGON HYDROCHLORIDE (RDNA) 1 MG VIAL IV ONE (15:00)
[2020-08-05] MEDS: SODIUM CHLORIDE 0.9% 1,000 ML IV SCH (16:45)
[2020-08-05] MEDS ORDERED: PROMETHAZINE HCL 25 MG/ML 1ML IV ONE (16:45)
[2020-08-05 22:08] LABS: Urine Bacteria NONE SEEN /hpf (None Seen); Urine Blood Negative /uL (Negative); Urine Specific Gravity 1.007 (1.001-1.035); Urine WBC <1 /hpf (0 - 5)
[2020-08-05 22:10] LABS: Sodium Urine 56 mmol/L (40-220)
[2020-08-06] MEDS: SODIUM CHLORIDE 0.9% 1,000 ML IV SCH ×3 (02:14→23:03)
[2020-08-06 05:00] VITALS: BP 145/55
[2020-08-06 05:51] LABS: Creatinine, Urine 22 mg/dL (30.0-125.0)
[2020-08-06 06:54] LABS: Albumin 3.4 g/dL (3.4-5.0); Calcium 7.9 mg/dL (8.5-10.1)
[2020-08-06 06:56] LABS: BUN/Creatinine Ratio 31.5
[2020-08-06 07:00] LABS: Bilirubin, Total 0.4 mg/dL (0.2-1.0); Total Protein 7.4 g/dL (6.4-8.2)
[2020-08-06 07:09] LABS: Potassium 2.1 mmol/L (3.5-5.1)
[2020-08-06] MEDS ORDERED: POTASSIUM CHL 20 Meq TABLET PO ONE (07:30)
[2020-08-06 08:57] VITALS: BP 137/70
[2020-08-06] MEDS: ATORVASTATIN 20 MG TAB PO SCH (09:25)
[2020-08-06] MEDS: ONDANSETRON HCL 4 MG/2 ML VIAL IV PRN (09:39)
[2020-08-06] MEDS: MORPHINE SULF INJ 2 MG/ML SYRINGE 1ML IV PRN ×3 (09:40→20:06)
[2020-08-06] MEDS ORDERED: FAMOTIDINE 20 MG TAB PO SCH (10:00)
[2020-08-06] MEDS ORDERED: ENOXAPARIN SOD 40 MG/0.4 ML SYRINGE SC SCH (10:00)
[2020-08-06 13:00] VITALS: BP 138/62
[2020-08-06] MEDS: PROMETHAZINE HCL 25 MG/ML 1ML IV PRN ×2 (13:25→22:05)
[2020-08-06] MEDS ORDERED: DEXTROSE (50%) 50ML SYRG IV PRN (14:15)
[2020-08-06 15:02] LABS: BUN/Creatinine Ratio 30.1
[2020-08-06 15:06] LABS: Potassium 2.7 mmol/L (3.5-5.1)
[2020-08-06] MEDS: POTASSIUM CHL 20MEQ/100ML 100 ML IV SCH ×2 (16:15→17:53)
[2020-08-06 16:46] VITALS: BP 136/65
[2020-08-06] MEDS: ACCU-CHEK COMFORT CURVE STRIP VI SCH ×2 (16:51→22:06)
[2020-08-06] MEDS: InsuLIN REG 1unit/0.01ml Soln (100units/ml) SC SCH ×2 (16:57→22:00)
[2020-08-06] MEDS: LIDOCAINE VISCOUS 2% 15ML UD MT SCH ×2 (17:53→22:05)
[2020-08-06 20:00] VITALS: BP 159/65
[2020-08-06 22:00] VITALS: BP 159/65
[2020-08-07] MEDS: ONDANSETRON HCL 4 MG/2 ML VIAL IV PRN ×2 (03:47→13:36)
[2020-08-07 05:00] VITALS: BP 154/88
[2020-08-07] MEDS: LIDOCAINE VISCOUS 2% 15ML UD MT SCH ×2 (05:53→12:52)
[2020-08-07 06:32] LABS: Basophils # (auto) 0 10 ^3/uL (0-0.2); Basophils % (auto) 0.3 % (0.0-2.0); Eosinophils # (auto) 0.2 10 ^3/uL (0-0.8); Eosinophils % (auto) 1.5 % (0.0-7.0); Hematocrit 28.1 % (36.0-46.0); Hemoglobin 9.7 g/dL (12.2-16.2); Lymphocytes # (auto) 1.5 10 ^3/uL (0.4-5.4); Lymphocytes % (auto) 14.2 % (10.0-50.0); Mean Corpuscular Hemoglobin 33.3 pg (28.0-32.0); Mean Corpuscular Hgb Conc. 34.5 g/dL (32.0-36.0); Mean Corpuscular Volume 96.6 fL (80.0-100.0); Monocytes # (auto) 1.1 10 ^3/uL (0-1.3); Monocytes % (auto) 9.9 % (0.0-12.0); Neutrophils # (auto) 8.1 10 ^3/uL (1.6-8.6); Neutrophils % (auto) 74.1 % (37.0-80.0); Nucleated Red Blood Cells % 0.1 %; Platelet Count (auto) 362 10^3/uL (140-450); Red Cell Distribution Width 14.8 % (11.8-14.3); White Blood Cell 10.9 10^3/uL (4.4-10.8)
[2020-08-07] MEDS: ACCU-CHEK COMFORT CURVE STRIP VI SCH ×4 (06:39→23:47)
[2020-08-07] MEDS: InsuLIN REG 1unit/0.01ml Soln (100units/ml) SC SCH ×4 (06:42→23:54)
[2020-08-07 06:47] LABS: Calcium 8.4 mg/dL (8.5-10.1)
[2020-08-07 06:49] LABS: BUN/Creatinine Ratio 28.3
[2020-08-07 06:54] LABS: Potassium 2.9 mmol/L (3.5-5.1)
[2020-08-07 09:00] VITALS: BP 152/68
[2020-08-07] MEDS: ATORVASTATIN 20 MG TAB PO SCH (10:13)
[2020-08-07] MEDS: ENOXAPARIN SOD 30 MG/0.3 ML SYRINGE SC SCH (10:13)
[2020-08-07] MEDS: SODIUM CHLORIDE 0.9% 1,000 ML IV SCH ×2 (10:13→13:31)
[2020-08-07] MEDS: levoFLOXacin 250MG 50 ML IV SCH (12:52)
[2020-08-07] MEDS: POTASSIUM CHL 20MEQ/100ML 100 ML IV SCH ×3 (12:52→17:42)
[2020-08-07 13:00] VITALS: BP 153/73
[2020-08-07] MEDS ORDERED: LACTULOSE 20Gm/30ML SOLN PO ONE (14:45)
[2020-08-07 17:00] VITALS: BP 138/70
[2020-08-07] MEDS ORDERED: amLODIPine BESYLATE 5 MG TAB PO ONE (17:00)
[2020-08-07 22:00] VITALS: BP 127/58
[2020-08-07] MEDS ORDERED: LACTULOSE 20Gm/30ML SOLN PO SCH (22:00)
[2020-08-07] MEDS: METOCLOPRAMIDE HCL 5MG/ml INJ 2ml VIAL IV SCH (23:47)
[2020-08-08] MEDS: SODIUM CHLORIDE 0.9% 1,000 ML IV SCH (02:35)
[2020-08-08 05:00] VITALS: BP 110/70
[2020-08-08] MEDS: METOCLOPRAMIDE HCL 5MG/ml INJ 2ml VIAL IV SCH (07:01)
[2020-08-08 07:02] LABS: Basophils # (auto) 0.1 10 ^3/uL (0-0.2); Basophils % (auto) 0.5 % (0.0-2.0); Eosinophils # (auto) 0.2 10 ^3/uL (0-0.8); Eosinophils % (auto) 1.8 % (0.0-7.0); Hematocrit 27.7 % (36.0-46.0); Hemoglobin 9.4 g/dL (12.2-16.2); Lymphocytes # (auto) 1.6 10 ^3/uL (0.4-5.4); Lymphocytes % (auto) 16.2 % (10.0-50.0); Mean Corpuscular Hemoglobin 32.8 pg (28.0-32.0); Mean Corpuscular Hgb Conc. 33.9 g/dL (32.0-36.0); Mean Corpuscular Volume 96.8 fL (80.0-100.0); Monocytes % (auto) 9.5 % (0.0-12.0); Neutrophils # (auto) 7.3 10 ^3/uL (1.6-8.6); Platelet Count (auto) 355 10^3/uL (140-450); Red Blood Cells 2.86 10^6/uL (4.0-5.20); Red Cell Distribution Width 15.2 % (11.8-14.3); White Blood Cell 10.1 10^3/uL (4.4-10.8)
[2020-08-08] MEDS: ACCU-CHEK COMFORT CURVE STRIP VI SCH ×2 (07:02→13:01)
[2020-08-08] MEDS: InsuLIN REG 1unit/0.01ml Soln (100units/ml) SC SCH ×2 (07:02→13:02)
[2020-08-08 07:18] LABS: BUN/Creatinine Ratio 22.9; Potassium 3.1 mmol/L (3.5-5.1)
[2020-08-08 07:20] LABS: Calcium 8.6 mg/dL (8.5-10.1); Magnesium 2.4 mg/dL (1.6-2.6); Phosphorus 2.8 mg/dL (2.5-4.90)
[2020-08-08 09:00] VITALS: BP 125/69
[2020-08-08] MEDS ORDERED: POTASSIUM CHL 20 Meq TABLET PO ONE (09:30)
[2020-08-08] MEDS: ENOXAPARIN SOD 30 MG/0.3 ML SYRINGE SC SCH (09:45)
[2020-08-08] MEDS: ATORVASTATIN 20 MG TAB PO SCH (09:45)
[2020-08-08] MEDS ORDERED: FAMOTIDINE 20 MG TAB PO SCH (10:00)
[2020-08-08] MEDS ORDERED: amLODIPine BESYLATE 5 MG TAB PO SCH (10:00)
[2020-08-08] MEDS ORDERED: POTA10TA51 PO (11:36)
[2020-08-08 12:25] VITALS: BP 142/79
[2020-08-08 13:00] VITALS: BP 142/79
== END 2020-08-08 13:30 | disposition hospice, home (50) | DRG 91 ==
LOC: ER 08:17 → EDBD 08:17 → TELE 08:18 → TELE-CENTR 22:55
PROVIDERS: ADMIT Nurse Practitioner Acute Care; ATTEND Internal Medicine
PROC: 06HY33Z Insertion of Infusion Device into Lower Vein, Percutaneous Approach (ICD-10-PCS; principal; 2020-08-05)
PROC: B54BZZA Ultrasonography of Right Lower Extremity Veins, Guidance (ICD-10-PCS; 2020-08-05)
DX: G92 Toxic encephalopathy (principal); N17.0 Acute kidney failure with tubular necrosis; N18.6 End stage renal disease; I13.2 Hypertensive heart and chronic kidney disease with heart failure and with stage 5 chronic kidney disease, or end stage renal disease; E44.0 Moderate protein-calorie malnutrition; J98.11 Atelectasis; I44.2 Atrioventricular block, complete; E87.1 Hypo-osmolality and hyponatremia; E87.3 Alkalosis; E87.6 Hypokalemia; R00.1 Bradycardia, unspecified; E11.65 Type 2 diabetes mellitus with hyperglycemia; R62.7 Adult failure to thrive; G89.4 Chronic pain syndrome; D72.829 Elevated white blood cell count, unspecified; E66.9 Obesity, unspecified; I50.9 Heart failure, unspecified; D63.8 Anemia in other chronic diseases classified elsewhere; Z88.8 Allergy status to other drugs, medicaments and biological substances; Z68.31 Body mass index [BMI] 31.0-31.9, adult; E11.22 Type 2 diabetes mellitus with diabetic chronic kidney disease; F17.200 Nicotine dependence, unspecified, uncomplicated; K59.00 Constipation, unspecified; W18.39XA Other fall on same level, initial encounter; Y93.89 Activity, other specified; Y92.89 Other specified places as the place of occurrence of the external cause; Y99.8 Other external cause status; Z51.5 Encounter for palliative care; Z79.01 Long term (current) use of anticoagulants; Z79.4 Long term (current) use of insulin; Z80.0 Family history of malignant neoplasm of digestive organs; Z82.49 Family history of ischemic heart disease and other diseases of the circulatory system; Z87.442 Personal history of urinary calculi; Z90.710 Acquired absence of both cervix and uterus; Z20.822 Contact with and (suspected) exposure to COVID-19
CPT/HCPCS: 36415; 36600; 71045; 74176; 80048; 80053; 81001; 82570; 82805; 82962; 83036; 83605; 83735; 83880; 83930; 84100; 84300; 84484; 84550; 84702; 85025; 85379; 85610; 85730; 87040; 87086; 87426; 93005; 93306; 93970; 96365; 96366; 96368; 96375; 99291; G0378; J1815; J2405; J3480

== ENCOUNTER 2020-10-21 06:37 | Inpatient (IN) | payer OTHER, MEDICAID ==
[~2020-10-21] VITALS: Ht 147.3 cm; Wt 52.0 kg
[~2020-10-21 06:37] MED LIST changes: -AMIO100T3 OR; -APIX5TAB PO; -CYCL-611 PO; -FLUT50SP NAS; -GLIP10TA9 PO; -LINA5TAB PO; -PATI1POW PO; +POTA10TA51 PO
[2020-10-21] MEDS ORDERED: SODIUM CHLORIDE 0.9% 1,000 ML IV ONE ×2 (07:15)
[2020-10-21 07:45] LABS: Basophils # (auto) 0.1 10 ^3/uL (0-0.2); Basophils % (auto) 0.6 % (0.0-2.0); Eosinophils # (auto) 0.3 10 ^3/uL (0-0.8); Eosinophils % (auto) 1.7 % (0.0-7.0); Hematocrit 33.2 % (36.0-46.0); Hemoglobin 11.2 g/dL (12.2-16.2); Lymphocytes # (auto) 3.6 10 ^3/uL (0.4-5.4); Lymphocytes % (auto) 22.9 % (10.0-50.0); Mean Corpuscular Hemoglobin 33.5 pg (28.0-32.0); Mean Corpuscular Hgb Conc. 33.7 g/dL (32.0-36.0); Mean Corpuscular Volume 99.5 fL (80.0-100.0); Monocytes # (auto) 1.1 10 ^3/uL (0-1.3); Monocytes % (auto) 7.2 % (0.0-12.0); Neutrophils # (auto) 10.6 10 ^3/uL (1.6-8.6); Neutrophils % (auto) 67.6 % (37.0-80.0); Platelet Count (auto) 312 10^3/uL (140-450); Red Blood Cells 3.34 10^6/uL (4.0-5.20); Red Cell Distribution Width 14.6 % (11.8-14.3); White Blood Cell 15.7 10^3/uL (4.4-10.8)
[2020-10-21] MEDS ORDERED: LORazepam 2MG/ML-1ML VIAL IV ONE ×2 (07:45→11:15)
[2020-10-21 07:59] LABS: Albumin 4.1 g/dL (3.4-5.0); Anion Gap 14 (5-15); Blood Urea Nitrogen 69 mg/dL (7-18); Calcium 8.5 mg/dL (8.5-10.1); Carbon Dioxide 22 mmol/L (21-32); Chloride 98 mmol/L (98-107); Glucose 233 mg/dL (74-106); Potassium 3.4 mmol/L (3.5-5.1); Sodium 134 mmol/L (136-145)
[2020-10-21] MEDS ORDERED: HALOPERIDOL LACTATE 5 MG/ML INJ VIAL IM ONE (08:00)
[2020-10-21] MEDS ORDERED: diphenhdrAMINE HCL 50 MG/1 ML VL IV ONE (08:00)
[2020-10-21 08:01] LABS: Alanine Aminotransferase 21 U/L (13-56); Aspartate Aminotransferase 19 U/L (15-37); GFR African American 16 mL/min; GFR Non-African American 13 mL/min
[2020-10-21 08:02] LABS: Lactic Acid w/Reflex 5.3 mmol/L (0.4-2.0)
[2020-10-21 08:06] LABS: Alkaline Phosphatase 170 U/L (45-117); Bilirubin, Total 0.3 mg/dL (0.2-1.0); Total Protein 8.9 g/dL (6.4-8.2)
[2020-10-21 10:28] LABS: Urine WBC None Seen /hpf (0 - 5)
[2020-10-21 10:37] LABS: Urine Bacteria NONE SEEN /hpf (None Seen); Urine Blood TRACE /uL (Negative); Urine Specific Gravity 1.009 (1.001-1.035)
[2020-10-21 10:51] LABS: Alcohol, Urine < 3.0 mg/dL (0-10); Amphetamine Screen, Urine NEGATIVE (NEGATIVE); Barbiturate Scree,Urine NEGATIVE (NEGATIVE); Benzodiazephine Screen, Urine POSITIVE (NEGATIVE); Cannabinoid Screen, Urine NEGATIVE (NEGATIVE); Cocaine Screen, Urine NEGATIVE (NEGATIVE); Opiate Scree,Urine POSITIVE (NEGATIVE); Phencyclidine Screen, Urine NEGATIVE (NEGATIVE)
[2020-10-21] MEDS ORDERED: ACETAMINOPHEN 500 MG TAB PO PRN (14:00)
[2020-10-21] MEDS ORDERED: NITROGLYCERIN 0.4 MG SL TAB SL PRN (14:00)
[2020-10-21] MEDS ORDERED: HALOPERIDOL LACTATE 5 MG/ML INJ VIAL IM PRN ×2 (14:00→19:15)
[2020-10-21] MEDS ORDERED: DEXTROSE (50%) 50ML SYRG IV PRN (14:00)
[2020-10-21] MEDS ORDERED: ONDANSETRON HCL 4 MG/2 ML VIAL IV PRN (14:00)
[2020-10-21] MEDS ORDERED: HYDROcodone-ACET 5/325MG TAB PO PRN (14:00)
[2020-10-21] MEDS ORDERED: MORPHINE SULF INJ 2 MG/ML SYRINGE 1ML IV PRN ×2 (14:00)
[2020-10-21] MEDS: MORPHINE SULF INJ 2 MG/ML SYRINGE 1ML IV PRN (14:40)
[2020-10-21] MEDS: levoFLOXacin 250MG 50 ML IV SCH (14:48)
[2020-10-21] MEDS: SODIUM CHLORIDE 0.9% 1,000 ML IV SCH (14:48)
[2020-10-21] MEDS: ACCU-CHEK COMFORT CURVE STRIP VI SCH ×2 (18:35→21:41)
[2020-10-21] MEDS: InsuLIN REG 1unit/0.01ml Soln (100units/ml) SC SCH ×2 (19:01→21:41)
[2020-10-22] MEDS: SODIUM CHLORIDE 0.9% 1,000 ML IV SCH ×2 (03:20→18:20)
[2020-10-22] MEDS: MORPHINE SULF INJ 2 MG/ML SYRINGE 1ML IV PRN (03:33)
[2020-10-22 06:31] LABS: BUN/Creatinine Ratio 23.1; Calcium 7.9 mg/dL (8.5-10.1); Magnesium 2.6 mg/dL (1.6-2.6)
[2020-10-22] MEDS: InsuLIN REG 1unit/0.01ml Soln (100units/ml) SC SCH ×4 (06:41→21:50)
[2020-10-22] MEDS: ACCU-CHEK COMFORT CURVE STRIP VI SCH ×4 (06:41→21:27)
[2020-10-22] MEDS ORDERED: FAMOTIDINE 20 MG TAB PO SCH (10:00)
[2020-10-22 10:03] VITALS: BP 122/69
[2020-10-22] MEDS: PANTOPRAZOLE 40 MG/10 ML VIAL INJ IV SCH (10:20)
[2020-10-22] MEDS ORDERED: POTASSIUM EFFERVESENT TAB 25 MEQ PO ONE (10:45)
[2020-10-22] MEDS ORDERED: LORazepam 2MG/ML-1ML VIAL IV PRN (11:45)
[2020-10-22] MEDS: FOLIC ACID 1 MG, MULTIPLE VITAMIN 10 ML, MAGNESIUM SULF SDV 50% 8 MEQ, THIAMINE INJ 100... INJ SCH ×5 (12:30)
[2020-10-22] MEDS ORDERED: DULO60CA PO (16:46)
[2020-10-22] MEDS ORDERED: CYAN1TAB14 PO (17:11)
[2020-10-22] MEDS ORDERED: LINA5TAB PO (17:11)
[2020-10-22] MEDS ORDERED: LORA1TAB23 PO (17:11)
[2020-10-22] MEDS ORDERED: METO5TAB5 PO (17:11)
[2020-10-22] MEDS ORDERED: FERR325T20 PO (17:11)
[2020-10-22] MEDS ORDERED: METO25TA5 PO (17:11)
[2020-10-22] MEDS ORDERED: POTA-220 PO (17:11)
[2020-10-22] MEDS ORDERED: PAR20T PO (17:11)
[2020-10-22] MEDS ORDERED: PANT40TA2 PO (17:11)
[2020-10-22] MEDS ORDERED: DOCU100T15 PO (17:11)
[2020-10-22] MEDS ORDERED: SENN8.6C PO (17:11)
[2020-10-22] MEDS ORDERED: PROM25TA5 PO (17:11)
[2020-10-22] MEDS ORDERED: FURO40TA4 PO (17:11)
[2020-10-22] MEDS ORDERED: CETI10TA80 PO (17:11)
[2020-10-22] MEDS ORDERED: GLIP10TA9 PO (17:11)
[2020-10-22] MEDS ORDERED: ALLO100T PO (17:11)
[2020-10-22] MEDS ORDERED: TEMA30CA PO (17:11)
[2020-10-23] MEDS: MORPHINE SULF INJ 2 MG/ML SYRINGE 1ML IV PRN (00:33)
[2020-10-23] MEDS: SODIUM CHLORIDE 0.9% 1,000 ML IV SCH ×2 (05:48→11:45)
[2020-10-23 06:01] LABS: Basophils # (auto) 0 10 ^3/uL (0-0.2); Eosinophils # (auto) 0.2 10 ^3/uL (0-0.8); Eosinophils % (auto) 2.4 % (0.0-7.0); Hemoglobin 9.2 g/dL (12.2-16.2); Lymphocytes # (auto) 2.2 10 ^3/uL (0.4-5.4); Monocytes # (auto) 0.6 10 ^3/uL (0-1.3)
[2020-10-23 06:05] LABS: Basophils % (auto) 0.3 % (0.0-2.0); Hematocrit 27.3 % (36.0-46.0); Lymphocytes % (auto) 31.5 % (10.0-50.0); Mean Corpuscular Hemoglobin 34.6 pg (28.0-32.0); Mean Corpuscular Hgb Conc. 33.8 g/dL (32.0-36.0); Mean Corpuscular Volume 102.4 fL (80.0-100.0); Monocytes % (auto) 8.7 % (0.0-12.0); Neutrophils # (auto) 3.9 10 ^3/uL (1.6-8.6); Neutrophils % (auto) 57.1 % (37.0-80.0); Nucleated Red Blood Cells % 0.1 %; Platelet Count (auto) 233 10^3/uL (140-450); Red Blood Cells 2.67 10^6/uL (4.0-5.20); Red Cell Distribution Width 14.8 % (11.8-14.3); White Blood Cell 6.9 10^3/uL (4.4-10.8)
[2020-10-23 06:07] VITALS: BP 130/62
[2020-10-23] MEDS: InsuLIN REG 1unit/0.01ml Soln (100units/ml) SC SCH ×2 (06:20→12:46)
[2020-10-23] MEDS: ACCU-CHEK COMFORT CURVE STRIP VI SCH ×2 (06:20→12:46)
[2020-10-23 06:23] LABS: Albumin 2.9 g/dL (3.4-5.0); Calcium 7.7 mg/dL (8.5-10.1); Potassium 3.5 mmol/L (3.5-5.1)
[2020-10-23 06:28] LABS: BUN/Creatinine Ratio 20.4; Bilirubin, Total 0.4 mg/dL (0.2-1.0); Total Protein 6.5 g/dL (6.4-8.2)
[2020-10-23] MEDS: PANTOPRAZOLE 40 MG/10 ML VIAL INJ IV SCH (09:24)
[2020-10-23 09:43] VITALS: BP 142/74
[2020-10-23 13:00] VITALS: BP 140/69
[2020-10-23] MEDS: FOLIC ACID 1 MG, MULTIPLE VITAMIN 10 ML, MAGNESIUM SULF SDV 50% 8 MEQ, THIAMINE INJ 100... INJ SCH ×5 (13:20)
[2020-10-23] MEDS: levoFLOXacin 250MG 50 ML IV SCH (14:30)
[2020-10-23 14:58] VITALS: BP 140/69
[2020-10-23] MEDS ORDERED: SODIUM CHLORIDE 0.9% 500 ML IV ONE (15:15)
== END 2020-10-23 16:15 | disposition hospice, home (50) | DRG 70 ==
LOC: EDBD 06:37 → ER 06:37 → TELE 13:56 → TELE-WESTW 10-22 10:10
PROVIDERS: ADMIT Nurse Practitioner Acute Care; ATTEND Internal Medicine Nephrology
DX: G93.41 Metabolic encephalopathy (principal); N18.6 End stage renal disease; I13.2 Hypertensive heart and chronic kidney disease with heart failure and with stage 5 chronic kidney disease, or end stage renal disease; N17.9 Acute kidney failure, unspecified; R62.7 Adult failure to thrive; Z99.2 Dependence on renal dialysis; Z88.8 Allergy status to other drugs, medicaments and biological substances; Z20.822 Contact with and (suspected) exposure to COVID-19; E11.22 Type 2 diabetes mellitus with diabetic chronic kidney disease; F17.200 Nicotine dependence, unspecified, uncomplicated; I25.10 Atherosclerotic heart disease of native coronary artery without angina pectoris; I25.2 Old myocardial infarction; I50.9 Heart failure, unspecified; Z78.1 Physical restraint status; Z79.84 Long term (current) use of oral hypoglycemic drugs; Z80.0 Family history of malignant neoplasm of digestive organs; Z82.49 Family history of ischemic heart disease and other diseases of the circulatory system; Z87.442 Personal history of urinary calculi; Z90.710 Acquired absence of both cervix and uterus; T40.2X5A Adverse effect of other opioids, initial encounter; Y92.89 Other specified places as the place of occurrence of the external cause
CPT/HCPCS: 36415; 36556; 70450; 71045; 80048; 80053; 80307; 81001; 82306; 82607; 82962; 83605; 83735; 84425; 84484; 85025; 87040; 87086; 87426; 95819; 96372; 96374; 97163; C9113; G0378; J1815

== ENCOUNTER 2021-01-28 09:57 | Emergency (ER) | payer OTHER, MEDICAID ==
[~2021-01-28] VITALS: Ht 149.9 cm; Wt 51.3 kg
[~2021-01-28 09:57] MED LIST changes: +ALLO100T PO; -ATOR20TA PO; +CETI10TA80 PO; +CYAN1TAB14 PO; +DOCU100T15 PO; +DULO60CA PO; -ERGO2000 PO; -FENT12DI TD; +FERR325T20 PO; +FURO40TA4 PO; +GLIP10TA9 PO; -HYDR-4798 PO; +LINA5TAB PO; +METO5TAB5 PO; -NIFE1TAB31 PO; +PANT40TA2 PO; +PAR20T PO; +POTA-220 PO; -POTA10TA51 PO; +PROM25TA5 PO; +SENN8.6C PO; +TEMA30CA PO; -ZOLP5TAB5 PO
[2021-01-28] MEDS ORDERED: MORPHINE SULFATE INJECTION 2 MG/ML SYRG IV ONE (12:00)
[2021-01-28] MEDS ORDERED: ONDANSETRON HCL 4 MG/2 ML VIAL IV ONE (12:00)
[2021-01-28 12:35] VITALS: BP 112/88
[2021-01-28] MEDS ORDERED: ONDANSETRON HCL 4 MG/2 ML VIAL IM ONE (13:00)
[2021-01-28] MEDS ORDERED: MORPHINE SULFATE INJECTION 2 MG/ML SYRG IM ONE (13:00)
== END 2021-01-28 13:17 | disposition home or self-care (01) ==
LOC: ER 09:57 → EDBD 09:57 → ER 13:17
DX: S42.201A Unspecified fracture of upper end of right humerus, initial encounter for closed fracture (principal); I13.2 Hypertensive heart and chronic kidney disease with heart failure and with stage 5 chronic kidney disease, or end stage renal disease; E11.22 Type 2 diabetes mellitus with diabetic chronic kidney disease; N18.6 End stage renal disease; I50.9 Heart failure, unspecified; I25.2 Old myocardial infarction; E78.5 Hyperlipidemia, unspecified; Z86.2 Personal history of diseases of the blood and blood-forming organs and certain disorders involving the immune mechanism; Z90.710 Acquired absence of both cervix and uterus; Z79.4 Long term (current) use of insulin; Z79.899 Other long term (current) drug therapy; Z88.8 Allergy status to other drugs, medicaments and biological substances; W19.XXXA Unspecified fall, initial encounter; Y93.89 Activity, other specified; Y92.89 Other specified places as the place of occurrence of the external cause; Y99.8 Other external cause status
CPT/HCPCS: 73030; 93005; 96372; 99284; J2270; J2405

== ENCOUNTER 2021-12-17 14:12 | Inpatient (IN) | payer OTHER, MEDICAID ==
[~2021-12-17] VITALS: Ht 152.4 cm; Wt 50.9 kg
[~2021-12-17 14:12] MED LIST changes: +CETI10TA2 PO; -CETI10TA80 PO
[2021-12-17 14:54] LABS: Urine Bacteria NONE SEEN /hpf (None Seen); Urine Blood Negative /uL (Negative); Urine WBC 12 /hpf (0 - 5)
[2021-12-17 15:33] LABS: Basophils # (auto) 0 10 ^3/uL (0-0.2); Basophils % (auto) 0.3 % (0.0-2.0); Eosinophils # (auto) 0.1 10 ^3/uL (0-0.8); Eosinophils % (auto) 0.6 % (0.0-7.0); Hematocrit 32.4 % (36.0-46.0); Hemoglobin 10.4 g/dL (12.2-16.2); Lymphocytes # (auto) 2.2 10 ^3/uL (0.4-5.4); Lymphocytes % (auto) 22.7 % (10.0-50.0); Mean Corpuscular Hemoglobin 31.2 pg (28.0-32.0); Mean Corpuscular Volume 97.4 fL (80.0-100.0); Monocytes # (auto) 0.8 10 ^3/uL (0-1.3); Monocytes % (auto) 8.4 % (0.0-12.0); Neutrophils # (auto) 6.5 10 ^3/uL (1.6-8.6); Nucleated Red Blood Cells % 0.1 %; Red Blood Cells 3.32 10^6/uL (4.0-5.20); Red Cell Distribution Width 12.2 % (11.8-14.3); White Blood Cell 9.6 10^3/uL (4.4-10.8)
[2021-12-17 15:57] LABS: Albumin 3.7 g/dL (3.4-5.0); BUN/Creatinine Ratio 18.2; Calcium 7.9 mg/dL (8.5-10.1)
[2021-12-17 16:00] LABS: Bilirubin, Total 0.3 mg/dL (0.2-1.0)
[2021-12-17] MEDS ORDERED: FAMOTIDINE 20 MG TAB PO ONE (16:00)
[2021-12-17] MEDS ORDERED: ALUM & MAG HYDROX-SIMETH LIQ(MAALOX) 30 ML PO ONE (16:00)
[2021-12-17] MEDS ORDERED: LIDOCAINE VISCOUS 2% 15ML UD PO ONE (16:00)
[2021-12-17] MEDS ORDERED: ONDANSETRON ODT 4 MG TAB PO ONE (16:00)
[2021-12-17 16:06] LABS: Potassium 7.9 mmol/L (3.5-5.1)
[2021-12-17] MEDS ORDERED: CALCIUM GLUC 1,000mg/50ml-NS 50 ML IV ONE (16:15)
[2021-12-17] MEDS ORDERED: InsuLIN REG 1unit/0.01ml Soln (100units/ml) IV ONE (16:15)
[2021-12-17] MEDS ORDERED: SODIUM CHLORIDE 0.9% 1,000 ML IV ONE (16:15)
[2021-12-17] MEDS ORDERED: ALBUTEROL SULF 2.5 MG/0.5ML(0.5%) NEB SOLN NEB ONE (16:15)
[2021-12-17] MEDS ORDERED: DEXTROSE (50%) 50ML SYRG IV ONE (16:15)
[2021-12-17] MEDS ORDERED: SODIUM ZIRCONIUM CYCL 10 GM PAK PO ONE (16:15)
[2021-12-17] MEDS ORDERED: cefTRIAXone 1GM/50ML D5W 50 ML IV ONE (17:00)
[2021-12-17] MEDS ORDERED: DEXTROSE (50%) 50ML SYRG IV PRN (21:15)
[2021-12-17] MEDS ORDERED: levoFLOXacin 250MG 50 ML IV ONE (21:15)
[2021-12-17] MEDS ORDERED: DOCUSATE SOD 100 MG CAP PO PRN (21:15)
[2021-12-17] MEDS: SODIUM CHLOR 0.9% PF (SALINE LOCK) 10ML VIAL/SYR IV SCH (22:00)
[2021-12-17] MEDS: InsuLIN REG 1unit/0.01ml Soln (100units/ml) SC SCH (22:00)
[2021-12-17] MEDS ORDERED: levoFLOXacin 500MG 100 ML IV ONE (22:00)
[2021-12-17] MEDS ORDERED: NITROGLYCERIN 0.4 MG SL TAB SL PRN (22:15)
[2021-12-17] MEDS ORDERED: MORPHINE SULFATE INJ 2 MG/ml SYRG IV PRN (22:15)
[2021-12-17] MEDS: ONDANSETRON HCL 4 MG/2 ML VIAL IV PRN (23:51)
[2021-12-18] VITALS (9 sets, daily range): BP systolic 136–194; BP diastolic 52–71
[2021-12-18] MEDS: ACCU-CHEK COMFORT CURVE STRIP VI SCH ×5 (00:32→21:36)
[2021-12-18] MEDS: CARVEDILOL 12.5 MG TAB PO SCH ×3 (01:26→21:34)
[2021-12-18] MEDS: HEPARIN SODIUM (PORCINE) 5000 UNITS/ML 1ML VIAL SC SCH ×3 (01:28→21:36)
[2021-12-18] MEDS: LORazepam 0.5 MG TAB PO PRN ×6 (01:30→20:13)
[2021-12-18] MEDS: hydrALAZINE HCL 20 MG/ML VL IV PRN ×3 (01:33→18:24)
[2021-12-18] MEDS ORDERED: LORazepam 2MG/ML-1ML VIAL IV PRN (02:00)
[2021-12-18 02:21] LABS: Red Cell Distribution Width 12.5 % (11.8-14.3); White Blood Cell 13.6 10^3/uL (4.4-10.8)
[2021-12-18 02:23] LABS: Hematocrit 29.7 % (36.0-46.0); Hemoglobin 9.7 g/dL (12.2-16.2); Mean Corpuscular Hemoglobin 31.9 pg (28.0-32.0); Mean Corpuscular Hgb Conc. 32.8 g/dL (32.0-36.0); Mean Corpuscular Volume 97.2 fL (80.0-100.0); Red Blood Cells 3.05 10^6/uL (4.0-5.20)
[2021-12-18 02:34] LABS: Albumin 3.5 g/dL (3.4-5.0); Calcium 8.2 mg/dL (8.5-10.1); Magnesium 3.2 mg/dL (1.6-2.6)
[2021-12-18 02:44] LABS: Basophils % (manual) 0 (0.0-2.0); Blast Cells 0; Eosinophils % (manual) 0 (0-7); Promyelocytes % 0; Reactive Lymphocytes 0
[2021-12-18 02:45] LABS: BUN/Creatinine Ratio 14.7; Bilirubin, Total 0.3 mg/dL (0.2-1.0); Total Protein 7.2 g/dL (6.4-8.2)
[2021-12-18 02:59] LABS: Potassium 5.6 mmol/L (3.5-5.1)
[2021-12-18] MEDS: ONDANSETRON HCL 4 MG/2 ML VIAL IV PRN ×3 (05:00→18:28)
[2021-12-18] MEDS: SODIUM CHLOR 0.9% PF (SALINE LOCK) 10ML VIAL/SYR IV SCH ×3 (05:34→21:34)
[2021-12-18] MEDS ORDERED: SODIUM ZIRCONIUM CYCL 10 GM PAK PO ONE (06:15)
[2021-12-18] MEDS: InsuLIN REG 1unit/0.01ml Soln (100units/ml) SC SCH ×4 (06:19→21:37)
[2021-12-18 07:06] LABS: Band Neutrophils % (manual) 5; Lymphocytes % (manual) 22 (10.0-50.0); Metamyelocytes % 2; Monocytes % (manual) 7 (0-12); Myelocytes % 1
[2021-12-18] MEDS: B-COMPLEX W/ C & FOLIC ACID(NEPHROVITE TAB) PO SCH (09:34)
[2021-12-18] MEDS ORDERED: levoFLOXacin 250MG 50 ML IV SCH (10:00)
[2021-12-18] MEDS: SODIUM BICARBONATE 50ML VIAL 150 ML in D5W 5% 1,000 ML IV SCH ×2 (10:45→21:15)
[2021-12-18] MEDS ORDERED: SODIUM CHLORIDE 0.9% 1,000 ML IV SCH (12:30)
[2021-12-18] MEDS: HYDROcodone-ACET 5/325MG TAB PO PRN (21:05)
[2021-12-19] VITALS (8 sets, daily range): BP systolic 130–182; BP diastolic 38–76
[2021-12-19] MEDS: SODIUM CHLOR 0.9% PF (SALINE LOCK) 10ML VIAL/SYR IV SCH ×3 (05:51→22:43)
[2021-12-19] MEDS: ACCU-CHEK COMFORT CURVE STRIP VI SCH ×4 (06:21→22:00)
[2021-12-19] MEDS: hydrALAZINE HCL 20 MG/ML VL IV PRN ×2 (06:23→11:30)
[2021-12-19] MEDS: InsuLIN REG 1unit/0.01ml Soln (100units/ml) SC SCH ×4 (06:23→20:18)
[2021-12-19] MEDS: ONDANSETRON HCL 4 MG/2 ML VIAL IV PRN ×2 (06:24→11:10)
[2021-12-19] MEDS: SODIUM BICARBONATE 50ML VIAL 150 ML in D5W 5% 1,000 ML IV SCH ×2 (08:45→20:15)
[2021-12-19] MEDS ORDERED: cloNIDine HCL 0.1 MG TAB PO PRN (09:30)
[2021-12-19] MEDS: FAMOTIDINE (10MG/ML) 2ML VL IV SCH (10:22)
[2021-12-19] MEDS: levoFLOXacin 250MG 50 ML IV SCH (10:22)
[2021-12-19] MEDS: B-COMPLEX W/ C & FOLIC ACID(NEPHROVITE TAB) PO SCH (10:22)
[2021-12-19] MEDS: CARVEDILOL 12.5 MG TAB PO SCH ×2 (10:23→22:36)
[2021-12-19] MEDS: HEPARIN SODIUM (PORCINE) 5000 UNITS/ML 1ML VIAL SC SCH ×2 (10:29→22:44)
[2021-12-19] MEDS: LORazepam 0.5 MG TAB PO PRN ×2 (11:31→22:45)
[2021-12-19] MEDS: HYDROcodone-ACET 5/325MG TAB PO PRN (14:15)
[2021-12-19] MEDS: ACETAMINOPHEN 325 MG TAB PO PRN (18:47)
[2021-12-20 05:00] VITALS: BP 160/53
[2021-12-20] MEDS: InsuLIN REG 1unit/0.01ml Soln (100units/ml) SC SCH ×4 (05:06→22:15)
[2021-12-20] MEDS: ACCU-CHEK COMFORT CURVE STRIP VI SCH ×4 (05:07→22:14)
[2021-12-20] MEDS: SODIUM CHLOR 0.9% PF (SALINE LOCK) 10ML VIAL/SYR IV SCH ×3 (06:48→22:14)
[2021-12-20] MEDS: LORazepam 0.5 MG TAB PO PRN ×2 (06:49→15:11)
[2021-12-20] MEDS: hydrALAZINE HCL 20 MG/ML VL IV PRN (06:50)
[2021-12-20 07:45] VITALS: BP 180/71
[2021-12-20] MEDS: SODIUM BICARBONATE 50ML VIAL 150 ML in D5W 5% 1,000 ML IV SCH ×2 (07:45→19:15)
[2021-12-20 09:00] VITALS: BP 136/50
[2021-12-20] MEDS: HEPARIN SODIUM (PORCINE) 5000 UNITS/ML 1ML VIAL SC SCH ×2 (09:30→22:15)
[2021-12-20] MEDS: B-COMPLEX W/ C & FOLIC ACID(NEPHROVITE TAB) PO SCH (09:31)
[2021-12-20] MEDS: CARVEDILOL 12.5 MG TAB PO SCH ×2 (09:32→22:00)
[2021-12-20] MEDS: levoFLOXacin 250MG 50 ML IV SCH (09:33)
[2021-12-20 13:00] VITALS: BP 158/52
[2021-12-20 14:29] LABS: Calcium 7.7 mg/dL (8.5-10.1); Potassium 3.8 mmol/L (3.5-5.1)
[2021-12-20 17:00] VITALS: BP 166/50
[2021-12-20 22:00] VITALS: BP 153/52
[2021-12-21] MEDS: ACETAMINOPHEN 325 MG TAB PO PRN (02:15)
[2021-12-21 05:00] VITALS: BP 101/62
[2021-12-21] MEDS: HYDROcodone-ACET 5/325MG TAB PO PRN (05:48)
[2021-12-21] MEDS: SODIUM CHLOR 0.9% PF (SALINE LOCK) 10ML VIAL/SYR IV SCH ×3 (05:58→21:51)
[2021-12-21] MEDS: ACCU-CHEK COMFORT CURVE STRIP VI SCH ×4 (06:42→21:44)
[2021-12-21] MEDS: InsuLIN REG 1unit/0.01ml Soln (100units/ml) SC SCH ×4 (06:43→21:47)
[2021-12-21] MEDS: SODIUM BICARBONATE 50ML VIAL 150 ML in D5W 5% 1,000 ML IV SCH ×2 (06:45→18:15)
[2021-12-21 08:31] VITALS: BP 124/58
[2021-12-21] MEDS: B-COMPLEX W/ C & FOLIC ACID(NEPHROVITE TAB) PO SCH (09:15)
[2021-12-21] MEDS: FAMOTIDINE (10MG/ML) 2ML VL IV SCH (09:16)
[2021-12-21] MEDS: HEPARIN SODIUM (PORCINE) 5000 UNITS/ML 1ML VIAL SC SCH ×2 (09:16→21:51)
[2021-12-21] MEDS: CARVEDILOL 12.5 MG TAB PO SCH ×2 (09:16→21:52)
[2021-12-21] MEDS: ONDANSETRON HCL 4 MG/2 ML VIAL IV PRN (09:16)
[2021-12-21] MEDS: levoFLOXacin 250MG 50 ML IV SCH (09:42)
[2021-12-21] MEDS ORDERED: LEVO500T31 PO (12:25)
[2021-12-21 12:34] VITALS: BP 170/61
[2021-12-21] MEDS: hydrALAZINE HCL 20 MG/ML VL IV PRN (15:11)
[2021-12-21 17:00] VITALS: BP 183/74
[2021-12-21] MEDS: LORazepam 0.5 MG TAB PO PRN (19:45)
[2021-12-21 22:00] VITALS: BP 169/60
[2021-12-22 05:00] VITALS: BP 135/54
[2021-12-22] MEDS: HYDROcodone-ACET 5/325MG TAB PO PRN (05:41)
[2021-12-22] MEDS: SODIUM CHLOR 0.9% PF (SALINE LOCK) 10ML VIAL/SYR IV SCH ×2 (06:25→14:00)
[2021-12-22] MEDS: ACCU-CHEK COMFORT CURVE STRIP VI SCH ×3 (06:37→17:00)
[2021-12-22] MEDS: InsuLIN REG 1unit/0.01ml Soln (100units/ml) SC SCH ×3 (06:38→17:00)
[2021-12-22] MEDS: SODIUM BICARBONATE 50ML VIAL 150 ML in D5W 5% 1,000 ML IV SCH (07:30)
[2021-12-22 09:00] VITALS: BP 135/51
[2021-12-22] MEDS: HEPARIN SODIUM (PORCINE) 5000 UNITS/ML 1ML VIAL SC SCH (09:50)
[2021-12-22] MEDS: ONDANSETRON HCL 4 MG/2 ML VIAL IV PRN (09:55)
[2021-12-22] MEDS: B-COMPLEX W/ C & FOLIC ACID(NEPHROVITE TAB) PO SCH (09:55)
[2021-12-22] MEDS: LORazepam 0.5 MG TAB PO PRN (09:56)
[2021-12-22] MEDS: CARVEDILOL 12.5 MG TAB PO SCH (09:56)
[2021-12-22] MEDS ORDERED: levoFLOXacin 250 MG TAB PO SCH (10:00)
[2021-12-22 13:34] VITALS: BP 98/57
[2021-12-22 16:05] VITALS: BP 131/58
== END 2021-12-22 17:30 | disposition home health service (06) | DRG 683 ==
LOC: EDUNIT# 14:12 → ER 14:12 → EDBD 14:12 → TELE 22:09 → TELE-WESTW 23:39
PROVIDERS: ADMIT Nurse Practitioner Family; ATTEND Family Medicine
PROC: 05H933Z Insertion of Infusion Device into Right Brachial Vein, Percutaneous Approach (ICD-10-PCS; principal; 2021-12-17)
PROC: B54MZZA Ultrasonography of Right Upper Extremity Veins, Guidance (ICD-10-PCS; 2021-12-17)
DX: N17.9 Acute kidney failure, unspecified (principal); I13.0 Hypertensive heart and chronic kidney disease with heart failure and stage 1 through stage 4 chronic kidney disease, or unspecified chronic kidney disease; S42.211A Unspecified displaced fracture of surgical neck of right humerus, initial encounter for closed fracture; N39.0 Urinary tract infection, site not specified; E87.5 Hyperkalemia; N18.4 Chronic kidney disease, stage 4 (severe); E83.51 Hypocalcemia; E83.41 Hypermagnesemia; D63.8 Anemia in other chronic diseases classified elsewhere; E11.22 Type 2 diabetes mellitus with diabetic chronic kidney disease; E78.5 Hyperlipidemia, unspecified; I50.9 Heart failure, unspecified; Z20.822 Contact with and (suspected) exposure to COVID-19; Z53.29 Procedure and treatment not carried out because of patient's decision for other reasons; X58.XXXA Exposure to other specified factors, initial encounter; I25.2 Old myocardial infarction; Z80.0 Family history of malignant neoplasm of digestive organs; Z82.49 Family history of ischemic heart disease and other diseases of the circulatory system; Z87.442 Personal history of urinary calculi; Z90.710 Acquired absence of both cervix and uterus; Z91.15 Patient's noncompliance with renal dialysis; Z88.1 Allergy status to other antibiotic agents; Y93.89 Activity, other specified; Y92.89 Other specified places as the place of occurrence of the external cause; Y99.8 Other external cause status
CPT/HCPCS: 36415; 71045; 80048; 80053; 81001; 82962; 83036; 83690; 83735; 83880; 84132; 84484; 85007; 85025; 85027; 87086; 93005; 93306; 94640; 96365; 96375; G0378; J0696; J1815; J1956; J2405; J3490; Q0162

== ENCOUNTER 2022-06-23 20:35 | Emergency (ER) | payer OTHER, MEDICAID ==
[~2022-06-23] VITALS: Ht 144.8 cm; Wt 52.4 kg
[~2022-06-23 20:35] MED LIST changes: +LEVO500T31 PO
[2022-06-23 21:10] VITALS: BP 192/78
[2022-06-23 22:33] LABS: Urine WBC None Seen /hpf (0 - 5)
[2022-06-23 22:43] LABS: Urine Bacteria NONE SEEN /hpf (None Seen); Urine Blood Negative /uL (Negative); Urine Specific Gravity 1.006 (1.001-1.035)
[2022-06-23 23:46] LABS: Basophils # (auto) 0 10 ^3/uL (0-0.2); Basophils % (auto) 0.4 % (0.0-2.0); Eosinophils # (auto) 0 10 ^3/uL (0-0.8); Eosinophils % (auto) 0.4 % (0.0-7.0); Hematocrit 34.8 % (36.0-46.0); Hemoglobin 11.5 g/dL (12.2-16.2); Lymphocytes # (auto) 1.6 10 ^3/uL (0.4-5.4); Lymphocytes % (auto) 14.8 % (10.0-50.0); Mean Corpuscular Hemoglobin 31.3 pg (28.0-32.0); Mean Corpuscular Hgb Conc. 33.1 g/dL (32.0-36.0); Mean Corpuscular Volume 94.6 fL (80.0-100.0); Monocytes # (auto) 0.5 10 ^3/uL (0-1.3); Monocytes % (auto) 4.6 % (0.0-12.0); Neutrophils # (auto) 8.8 10 ^3/uL (1.6-8.6); Neutrophils % (auto) 79.8 % (37.0-80.0); Nucleated Red Blood Cells % 0.1 %; Red Blood Cells 3.68 10^6/uL (4.0-5.20); Red Cell Distribution Width 12.7 % (11.8-14.3)
[2022-06-23 23:52] LABS: Albumin 4.8 g/dL (3.4-5.0); Calcium 8.9 mg/dL (8.5-10.1); Potassium 4.6 mmol/L (3.5-5.1)
[2022-06-23 23:54] LABS: BUN/Creatinine Ratio 21.3
[2022-06-23 23:56] LABS: Bilirubin, Total 0.5 mg/dL (0.2-1.0); Total Protein 8.7 g/dL (6.4-8.2)
== END 2022-06-24 09:34 | disposition left against medical advice (07) ==
LOC: ER 20:35
DX: N17.9 Acute kidney failure, unspecified (principal); I13.2 Hypertensive heart and chronic kidney disease with heart failure and with stage 5 chronic kidney disease, or end stage renal disease; E11.22 Type 2 diabetes mellitus with diabetic chronic kidney disease; N18.6 End stage renal disease; I50.9 Heart failure, unspecified; E78.5 Hyperlipidemia, unspecified; I25.2 Old myocardial infarction; Z86.2 Personal history of diseases of the blood and blood-forming organs and certain disorders involving the immune mechanism; Z90.710 Acquired absence of both cervix and uterus
CPT/HCPCS: 36415; 70450; 71046; 80053; 81001; 82962; 84484; 85025; 93005